=== PATIENT | female | born 1970 | race Caucasian/White ===

== ENCOUNTER 2016-11-08 07:33 | Emergency (ER) | payer MEDICARE, BC ==
[~2016-11-08] VITALS: Ht 165.1 cm; Wt 103.5 kg
[~2016-11-08 07:33] MED LIST: CHOL100047 PO; CYAN10009 PO; ESOM20CA PO; LISI-621 PO; LORA-320 PO; MAGN400C PO; TEMA30CA PO; TIZA4TAB4 PO; VILA40TA PO
[2016-11-08 07:35] VITALS: Ht 165.1 cm; Wt 103.5 kg
--- NOTE | 2016-11-08 08:00 | NUR ---
PROVIDER DR. BOSTON IN ROOM WITH PT.
[2016-11-08] MEDS ORDERED: NORMAL SALINE 1,000 ML IV ONE (08:02)
--- NOTE | 2016-11-08 08:07 | ERPDOC ---
Departure Disposition Decision Date: Nov 08, 2016 Disposition Decision Time: 12:00 Disposition: 01 DISCHARGED HOME, SELF-CARE Impression Impression Impression: Primary Impression: Nausea & vomiting Vomiting type: unspecified Vomiting Intractability: non-intractable Qualified Codes: R11.2 - Nausea with vomiting, unspecified Additional Impression: Pain, dental Severity: Mild Condition: Improved Seen By: Physician only Referrals: CECILY SAUNDERS (Family) 1 Day Patient Instructions: Acute Nausea and Vomiting (ED), Chest Pain (ED), Toothache (ED) Problems/Meds/Labs Reviewed?: Yes Medications reviewed and manag: Yes Departure Forms: Return to Work/School Permit Return to Work/School Date: Nov 10, 2016 Follow up care ordered?: Yes Mental Status: Alert, Oriented Scripts Ondansetron (Ondansetron Odt) 4 Mg Tab.rapdis 4 MG PO Q6HR for NAUSEA, #12 TAB 0 Refills Prov: DINAH BOSTON DO 11/08/16 Amoxicillin (Amoxicillin) 500 Mg Capsule 1 CAP PO BID for dental pain for 10 Days, #20 CAP 0 Refills Prov: DINAH BOSTON DO 11/08/16 HPI - General Medical General Stated Complaint: V/D,CHILLS,CHEST DISCOMFORT Time Seen by Provider: 08:02 Source: patient (Patient presents to the ER with multiple complaints. Patient complains of N/V/D, which apparently began this morning, with a "fullness" in the chest after vomiting. On examination, the patient complains of nausea only. ) Exam Limitations: no limitations HPI - General Medical Occurred At: home Onset: Changing over time Duration: 6-12 hrs Pain Scale: Now & Worst: Unable to Rate (abdominal cramping) Severity: mild Associated Symptoms: chest pain, malaise, nausea/vomiting, other, DENIES: cough , diaphoresis, fever/chills, headaches, loss of appetite, rash, seizure, shortness of breath, syncope, weakness Hx of Similar Symptoms: No Allergies: Coded Allergies: No Known Drug Allergies (Verified Allergy, Unknown, 10/26/15) Past History Past Medical History Pt denies signifigant PMH Hx Echocardiogram: No Musculoskeletal: back pain Psychological: anxiety, bipolar Surgical History General: gallbladder Family History Family PMH: FOUND: [place], other Vaccines Hx Influenza Vaccination: Yes Hx Pneumococcal Vaccination: No Hx Tetanus, Diptheria, Pertuss: Yes (09/04/2012) Social History Smoking Status: Unknown if ever smoked Substance Use Type: does not use Alcohol Intake: none Marital Status: Sexuality: male partner Housing: house Household Members: spouse Service: No Current Occupational Status: employed Occupational Hazard: No Advance Directives: Yes Full Code Record Review Pertinent history updated: Yes Review of Systems Constitutional Constitutional: DENIES: chills, fever Eyes Lids/Accessories: DENIES: erythema, swelling ENMT Ears: DENIES: erythema, pain Balance: DENIES: ataxia, vertigo Sinuses: DENIES: congestion, rhinorrhea Mouth/Throat: DENIES: sore throat Cardiovascular Cardiac: chest pain, DENIES: dyspnea on exertion, orthopnea Rhythm/Rate: DENIES: tachycardia Pulmonary Respiratory: DENIES: cough, dyspnea, sputum GI Upper Abdomen: nausea, vomiting, DENIES: pain Lower Abdomen: diarrhea, DENIES: constipation, pain General: DENIES: dysuria Musculoskeletal General: DENIES: cramps, pain, weakness Integumentary Skin: DENIES: color change, itching, rash Neurological General: DENIES: ataxia, change in strength, headache, numbness, poor coordination, seizures, syncope, vertigo, weakness Psychiatric Psychiatric: DENIES: anxiety, depression, nervousness Hematologic/Lymphatic Hematologic/Lymphatic: DENIES: anemia Allergic/Immunological Allergic/Immunoligical: DENIES: sneezing All other Systems All Other Systems: Reviewed and Negative Physical Exam General General Nourishment: well nourished, well developed, appears stated age, adult General Body Habitus: well groomed Vitals and Pain First Documented Vital Signs Date Time Temp Pulse Resp B/P Pulse Ox O2 Delivery O2 Flow Rate FiO2 11/08/16 07:35 98.0 76 18 146/76 100 Room Air Weight: Kilograms: Height (feet): 5 Height (inches): 5 Triage Pain Scale: RN VS reviewed by Provider: Yes Eyes (brief) Eyes Brief: found: EOMI, PERRL ENMT (brief) ENMT Brief: FOUND: TM clear, TM good light reflex, mucosa moist, NOT FOUND: pharnyx erythema Neck (brief) Neck: FOUND: trachea midline, NOT FOUND: adenopathy, nuchal rigidity, tenderness, tracheal deviation Respiratory (brief) Respiratory: FOUND: clear all whittaker, equal bilaterally Cardiovascular (brief) Cardiac: FOUND: regular rate, regular rhythm Capillary Refill: <2 sec Pulses: all distal extremities, equal, strong Abdomen (brief) Abdominal Brief: FOUND: bowel normo active x4, soft, NOT FOUND: distended, tender Lymphatic (brief) Lymphatic Brief: NOT FOUND: adenopathy Musculoskeletal (brief) Musculoskeletal Brief: NOT FOUND: spasm, tenderness Integumentary (brief) Integumentary Brief: FOUND: pink, warm Neurologic (brief) Neurological Brief: FOUND: CN w/o gross def to obs, gait w/o gross def to obs, motor-no gross deficits, sensory-no gross deficits, NOT FOUND: ataxia Psychiatric (brief) Psychiatric Brief: FOUND: alert, attentive, normal affect, oriented Differential Diagnoses Considering: Acute [place], Hypo/Hyperglycemia, Hypo/Hyperkalemia, Hypo/ Hypernatremia, Meningitis, Pneumonia, Other Progress Results/Orders Orders Procedure Category Date Status Time Iv Lock (Ed Only) EDM 11/08/16 Transmitted 08:02 Nothing By Mouth (Ed EDM 11/08/16 Transmitted Only) 08:02 Cbc W/Auto LAB 11/08/16 Complete Diff-Reflex Manual 08:02 Cmp - Comprehensive LAB 11/08/16 Complete Metabolic 08:02 Lipase LAB 11/08/16 Complete 08:02 Abdomen Acute (Inc. RAD 11/08/16 Resulted Chest) 08:02 Normal Saline (Normal PHA 11/08/16 Complete Saline Iv) 08:02 Ondansetron Inj PHA 11/08/16 Complete (Zofran) 08:15 Troponin I W LAB 11/08/16 Complete Hemolysis Index EKG EKG 11/08/16 Taken LAB 11/08/16 Complete Qualitative, Urine 08:10 UA, LAB 11/08/16 Complete Dip&Micro(Complete) & 08:22 Troponin I W LAB 11/08/16 Complete Hemolysis Index 10:48 EKG EKG 11/08/16 Taken Lab Results Laboratory Tests Test 11/08/16 08:22 11/08/16 10:54 White Blood Count 7.7T/MM3 Red Blood Count 4.56M/MM3 Hemoglobin 12.6GM/DL Hematocrit 39.4% Mean Corpuscular Volume 86.4UM3 Mean Corpuscular Hemoglobin 27.6UUG Mean Corpuscular Hemoglobin Concent 32.0GM/DL RDW Standard Deviation 43.6FL Platelet Count 343T/MM3 Mean Platelet Volume 10.4UM3 Immature Granulocyte % (Auto) 0.3% Neutrophils (%) (Auto) 83.3% Lymphocytes (%) (Auto) 11.1% Monocytes (%) (Auto) 4.8% Eosinophils (%) (Auto) 0.1% Basophils (%) (Auto) 0.4% Absolute Immature Granulocyte (auto 0.02T/MM3 Absolute Neutrophils (auto) 6.4T/MM3 Absolute Lymphocytes (auto) 0.9T/MM3 Absolute Monocytes (auto) 0.4T/MM3 Absolute Eosinophils (auto) 0.0T/MM3 Absolute Basophils (auto) 0.0T/MM3 Urine Collection Type Cleancatch-midstream Urine Color Yellow Urine Turbidity Clear Urine pH 5.0 Urine Specific [place] >=1.030 Urine Protein Negative Urine Glucose (UA) Negative Urine Ketones 3+ Urine Blood 2+ Urine Nitrite Negative Urine Bilirubin 1+ Urine Urobilinogen 0.2EU/DL Urine Leukocyte Esterase Negative Urine RBC 3-5/HPF Urine WBC 0-1/HPF Urine Squamous Epithelial Cells 5-10 Urine Bacteria 4+ Urine Hyaline Casts 0-1/LPF Urine Mucus Present Urine Culture Indicated Cult not indicated Urine Test Negative Turbidity < 20 Sodium Level 142MEQ/L Potassium Level 3.9MEQ/L Chloride Level 107MEQ/L Carbon Dioxide Level 20MEQ/L Anion Gap 15MEQ/L Blood Urea Nitrogen 15.0MG/DL Creatinine 0.6MG/DL Glomerular Filtration Rate Calc 107 BUN/Creatinine Ratio 25RATIO Glucose Level 110MG/DL Calculated Osmolality 275MOSM/KG Calcium Level 9.3MG/DL Total Bilirubin 0.70MG/DL Icterus Index < 2 Aspartate Amino Transf (AST/SGOT) 29U/L Alanine Aminotransferase (ALT/SGPT) 29U/L Alkaline Phosphatase 149U/L Troponin I < 0.012ng/ml < 0.012ng/ml Total Protein 7.5G/DL Albumin 4.1G/DL Globulin 3.4G/DL Albumin/Globulin Ratio 1.2RATIO Lipase 132U/L Chemistry Specimen Hemolysis < 15 < 15 Medications Current ED Medications Sodium Chloride (Normal Saline IV) 1,000 ml @ 0 mls/hr Q0M ONCE IV Last administered on 11/08/16 08:33; Start 11/08/16 at 08:02; Stop 11/08/16 at 08:05; Status DC Ondansetron HCl (Zofran) 4 mg O ONCE IV Last administered on 11/08/16 08:33; Start 11/08/16 at 08:15; Stop 11/08/16 at 08:16; Status DC Progress Progress Patient is feeling better following IVF and Medications. I discussed admission, but the patient refused. Patient will agree to repeat cardiac enzymes Patient denies chest pain, stating her chest was sore from vomiting. Patient at discharge complains of Dental pain at approx. tooth # 14 or #15 No obvious abscess noted. EKG EKG #1: Rate: 60-100 Rhythm: sinus [place]: normal QRS: normal Intervals: normal ST/T: non-specific changes Interpreted by: signing physician EKG #2: Rate: 60-100 Rhythm: sinus [place]: normal QRS: normal Intervals: normal ST/T: non-specific changes Interpreted by: signing physician EKG Comments No change from prior EKG ScImage/Picomm EKG interpreted in ScImage/Pic: No Xray Xray : Reason for Exam: nausea / vomiting / diarrhea Xray: Abdominal Series Interpretation: Normal, Reviewed Written Report DINAH BOSTON DO Nov 08, 2016 08:07
[2016-11-08] MEDS ORDERED: ONDANSETRON 4mg/2ml INJECTION IV ONE (08:15)
[2016-11-08 08:28] LABS: BASOPHILS % (AUTO) 0.4 % (0-2); EOSINOPHILS % (AUTO) 0.1 % (0-4); HCT - HEMATOCRIT 39.4 % (36-46); HGB - HEMOGLOBIN 12.6 GM/DL (12-16); IMMATURE GRANULOCYTE # (AUTO) 0.02 T/MM3 (0.00-0.03); IMMATURE GRANULOCYTE % (AUTO) 0.3 % (0.0-0.5); LYMPHOCYTES # (AUTO) 0.9 T/MM3 (1-4.8); LYMPHOCYTES % (AUTO) 11.1 % (23-45); MEAN CORPUSCULAR HGB 27.6 UUG (26-34); MEAN CORPUSCULAR VOLUME 86.4 UM3 (80-100); MEAN PLATELET VOLUME 10.4 UM3 (9.4-12.4); MONOCYTES # (AUTO) 0.4 T/MM3 (0-0.8); MONOCYTES % (AUTO) 4.8 % (0-9.0); NEUTROPHILS #(AUTO)-ABSOLUTE 6.4 T/MM3 (1.8-7.7); NEUTROPHILS % (AUTO) 83.3 % (33-66); RED BLOOD COUNT 4.56 M/MM3 (4.00-5.20); WBC - WHITE BLOOD COUNT 7.7 T/MM3 (4.5-11.0)
[2016-11-08 08:29] LABS: BLOOD, URINE 2+ (NEGATIVE); COLOR,URINE YELLOW (YELLOW); LEUKOCYTE ESTERASE ,URINE NEGATIVE (NEGATIVE); NITRITE,URINE NEGATIVE (NEGATIVE); UROBILINOGEN,URINE 0.2 EU/DL (NORMAL)
[2016-11-08 08:39] LABS: WBC,URINE 0-1 /HPF (0-5)
[2016-11-08 08:40] LABS: ALBUMIN 4.1 G/DL (3.5-5.0); ALBUMIN/GLOBULIN RATIO 1.2 RATIO (1.1-2.2); ALKALINE PHOSPHATASE 149 U/L (38-126); ALT (SGPT) 29 U/L (9-52); ANION GAP 15 MEQ/L (5-15); AST (SGOT) 29 U/L (14-36); BACTERIA,URINE 4+ (NEGATIVE); BUN/CREATININE RATIO 25 RATIO (6-26); CALCIUM 9.3 MG/DL (8.4-10.2); CHLORIDE 107 MEQ/L (98-107); CO2 - CARBON DIOXIDE 20 MEQ/L (22-30); CREATININE 0.6 MG/DL (0.7-1.2); GLOMERULAR FILTRATION RATE 107; GLUCOSE 110 MG/DL (65-110); LIPASE 132 U/L (23-300); MUCUS,URINE PRESENT; POTASSIUM 3.9 MEQ/L (3.6-5); SODIUM 142 MEQ/L (134-144); TOTAL PROTEIN 7.5 G/DL (6.3-8.2)
[2016-11-08 08:41] LABS: HYALINE CASTS, URINE 0-1 /LPF
--- NOTE | 2016-11-08 08:46 | NUR ---
XRAY PT TO XRAY PER COT.
--- NOTE | 2016-11-08 08:57 | NUR ---
XRAY/NAUSEA STATUS PT RETURNED FROM XRAY PER COT. PT STATES ZOFRAN HAS HELPED THE NAUSEA, CONTINUES TO DENY ANY PAIN.
--- NOTE | 2016-11-08 09:08 | DI ---
Indication: ITS.REASON: nausea/ vomiting / chest pain PROCEDURE: PA view of the chest with supine and upright AP views of the abdomen Encounter: Initial Comparison: CT abdomen and pelvis dated March 28, 2014 FINDINGS: The lungs are clear. There is no abnormal airspace opacity, pleural effusion or pneumothorax identified. The heart size, pulmonary vasculature and mediastinum are within normal limits. There is no free air on the upright view. The bowel gas pattern is nonobstructive and nonspecific. Gas is seen in nondilated small and large bowel to the level of the rectum. Moderate stool is seen throughout the colon. The bony structures are grossly unremarkable. Postoperative change at the GE junction region. Prior cholecystectomy. Intrauterine device projecting over the left upper pelvis. Surgical anastomosis in the left midabdomen. IMPRESSION: 1. No acute cardiopulmonary abnormality. 2. No evidence of acute obstruction or free air. Postoperative changes of prior gastric bypass. .
[2016-11-08] MEDS ORDERED: ZOLP10TA6 PO (09:20)
[2016-11-08] MEDS ORDERED: QUET50TA53 PO (09:20)
[2016-11-08] MEDS ORDERED: TRAM50TA4 PO (09:20)
[2016-11-08] MEDS ORDERED: LORA2TAB2 PO (09:20)
--- NOTE | 2016-11-08 10:45 | NUR ---
PROVIDER DR. BOSTON IN ROOM WITH PT.
--- NOTE | 2016-11-08 11:26 | NUR ---
REPORT REPORT FROM ROSA BARNES. MELBA ROMERO
[2016-11-08] MEDS ORDERED: AMOX500C2 PO (12:06)
[2016-11-08] MEDS ORDERED: ONDA4TAB10 PO (12:06)
[2016-11-08 12:31] VITALS: BP 133/81; PULSE 84; RESP 16; TEMP 98; O2SAT 100
--- NOTE | 2016-11-08 12:31 | NUR ---
DEPART VERBAL AND WRITTEN DISCHARGE INSTRUCTIONS GIVEN AND UNDERSTOOD. CONDITION IS STABLE. PATIENT RELEASED AMBULATORY FROM ER. [facility].
== END 2016-11-08 12:31 | disposition home or self-care (01) ==
LOC: ED 07:33
DX: R11.2 Nausea with vomiting, unspecified (principal); K08.89 Other specified disorders of teeth and supporting structures
CPT/HCPCS: 36415; 74022; 80053; 81001; 81025; 83690; 84484; 85025; 93005; 96361; 96374; 99284; J2405; J7030

== ENCOUNTER 2017-11-23 09:37 | Inpatient (IN) ==
--- OUTSIDE RECORDS SUMMARY | 2017-11-23 11:03 | External Medical Summary ---
:1970 Author Organization [facility]. Summary purpose CCDA Sent to [facility] Chief Complaint and Reason for Visit No authorized Reason for Visit (Admitting Diagnosis) is available for this visit. Problem list No authorized problems tracked for continuity of care are available for this visit. Encounters No authorized problems tracked for encounter diagnoses are available for this visit. Medications No medications recorded for this patient visit Allergies, adverse reactions, alerts No allergy information is available for this patient. Immunizations No immunizations recorded for this patient visit Relevant diagnostic tests and/or laboratory data RESULTS Chemistry Group [id number] Result Normal Range Units Sodium 139 134-145 mmol/L Potassium 4.5 3.6-5.0 mmol/L Chloride 100 98-107 mmol/L CO2 25 22-30 mmol/L Glucose 87 75-110 mg/dl BUN 11 9-20 mg/dl Creatinine L .64 0.8-1.7 mg/dl Calcium 8.7 8.4-10.2 mg/dl History of procedures Procedure Code Code Type Description Date Performed Performing Physician [id number] CPT-4 METABOLIC PANEL TOTAL 12-05-2015 CECILY MORRIS Functional status No functional or cognitive status observations are available for this visit. Vital signs No authorized vital signs are available for this visit. Social history No Social History or smoking status observations were recorded for this visit. ( Unknown if ever smoked.) Treatment Plan No treatment plan text is available for this visit. Hospital discharge instructions No discharge instruction text is available for this visit.
--- OUTSIDE RECORDS SUMMARY | 2017-11-23 11:03 | External Medical Summary | Referral Summary ---
:1970 Author Organization [facility] Address [address] [place] [address] Encounter [facility] [id number] Date(s): 10/18/15 - 10/18/15 [facility] [address] [place] [address] - [place] Discharge Diagnosis: Foot pain Discharge Diagnosis: Toe sprain Discharge Diagnosis: Abrasion of left arm Discharge Disposition: 01-Home or Self Care Attending Physician: Provider, Immediate Care Attending Physician: Anupama Gonzalez APRN Admitting Physician: Provider, Immediate Care Vital Signs Most recent to oldest [Reference Range]: 1 Temperature Oral [35.8-37.3 degC] 36.8 degC (10/18/15 4:20 PM) Peripheral Pulse Rate [60-100 bpm] 66 bpm (10/18/15 4:20 PM) Blood Pressure [90-140/60-90 mmHg] 155/82 mmHg *HI* (10/18/15 4:20 PM) SpO2 98 % (10/18/15 4:20 PM) Problem List No data available for this section Allergies, Adverse Reactions, Alerts No Known Allergies Medications Ativan 0 Refill(s) Start Date: 10/18/15 Status: Orderedlisinopril 20 mg oral tablet mg tabs, Oral, Daily, 0 Refill(s) Start Date: 10/18/15 Status: Orderedmagnesium oxide Oral, 0 Refill(s) Start Date: 10/18/15 Status: OrderedNexIUM Oral, Daily, 0 Refill(s) Start Date: 10/18/15 Status: Orderedtemazepam Oral, Bedtime (once a day), 0 Refill(s) Start Date: 10/18/15 Status: OrderedVitamin B12 0 Refill(s) Start Date: 10/18/15 Status: OrderedVitamin D3 0 Refill(s) Start Date: 10/18/15 Status: Orderedvybrid vybrid, 0 Refill(s) Start Date: 10/18/15 Status: Ordered Results No data available for this section Immunizations No data available for this section Procedures No data available for this section Social History Social History Type Response Smoking Status Former smoker Assessment and Plan Extracted from: Title: Office Visit Note Author: Anupama Gonzalez JOWL TRIMMER Date: 10/18/15 Assessment/Plan 1.Toe sprain Ice/elevate F/u with PCP if not improving No Fracture 2.Abrasion of left arm Cleanse with soap and water daily Monitor for s/s of infections and f/u if any develops Diagnosis and treatment discussed. Patient advised to follow up with PCP in 2 -3 days. If symptoms worsen at any time, patient will go to the nearest ER for further evaluation. Patient stable upon disc harge, alert and orientated with no apparent distress, and indicated understanding of discharge instructions. Foot pain Ordered: XR Foot Complete Left
--- OUTSIDE RECORDS SUMMARY | 2017-11-23 11:03 | External Medical Summary ---
:1970 Author Organization [facility]. Summary purpose CCDA Sent to [facility] Chief Complaint and Reason for Visit Admit Diagnosis 1 401.1 Problem list No authorized problems tracked for continuity of care are available for this visit. Encounters No authorized problems tracked for encounter diagnoses are available for this visit. Medications No medications recorded for this patient visit Allergies, adverse reactions, alerts No allergy information is available for this patient. Immunizations No immunizations recorded for this patient visit Relevant diagnostic tests and/or laboratory data No authorized results are available for this patient visit History of procedures No procedures recorded for this patient visit. Functional status No functional or cognitive status [...]
--- OUTSIDE RECORDS SUMMARY | 2017-11-23 11:04 | External Medical Summary | Continuity of Care Document ---
:1970 Author Organization [facility]. Allergies Active Description Code Type Severity Reaction Onset Reported/ Identified Relationship Clinical to Patient Status Yes FETZIMA 11923 Drug N/A increased 07188 Aller anger 0 gy Yes NKDA N/A N/A Yes Pertussis PERTU 5 N/A swelling Vaccine SSIS Yes TETANUS T 3112 1 N/A Redness DIPHTHERIA TOX,ADULT Yes No Known 99683 3 N/A N/A Drug 0 Allergies Yes No Known NKMA N/A N/A 10/18/2015 Allergies Yes No Known No Aller Unknown N/A 10/26/2015 Drug Known gy Allergies Drug Aller gies Yes No Known No Drug Unknown N/A 06/07/2016 Allergies Known Aller Aller gy gies Medications Medication Packaging Start Date Stop Date Route Dosage Sig VITAMIN ORAL 11/24/2011 ORAL B-12 5 ORAL 11/24/2011 ORAL MULTIVITAMINS 5 ORAL 11/24/2011 ORAL LORAZEPAM 5 CALCIUM ORAL 11/24/2011 ORAL 5 ORAL 09/27/2012 ORAL ZOLPIDEM TARTRATE 5 ORAL 09/27/2012 ORAL OMEPRAZOLE 5 MOBIC ORAL 09/27/2012 ORAL 5 LORTAB ORAL 09/27/2012 ORAL 5 ORAL 09/27/2012 ORAL LORAZEPAM 5 FOLIC ORAL 09/27/2012 ORAL ACID 5 FERROUS ORAL 09/27/2012 ORAL SULFATE 5 VITAMIN ORAL 11/19/2014 ORAL 30 D HIGH POTENCY daily VITAMIN ORAL 11/19/2014 ORAL 60 B-12 daily VIIBRYD ORAL 11/19/2014 ORAL 7 5 daily ORAL 11/19/2014 ORAL 40 TRAMADOL HCL 5 4 times a day ORAL 11/19/2014 ORAL 30 RESTORIL 5 at bedtime ORAL 11/19/2014 ORAL 120 LORAZEPAM 6 four times daily ORAL 11/19/2014 ORAL 30 LISINOPRIL daily VIIBRYD ORAL 12/02/2014 ORAL 28 5 daily ORAL 12/17/2014 ORAL 30 RESTORIL at bedtime VIIBRYD ORAL 04/23/2015 ORAL 7 5 daily FETZIMA ORAL 04/23/2015 ORAL 30 5 daily VIIBRYD ORAL 06/09/2015 ORAL 30 daily ORAL 11/17/2015 ORAL 60 CLONAZEPAM 6 twice daily AMBIEN ORAL 12/31/2015 ORAL 15 every other night Problems Date Dx Attending Type Code Diagnosis Diagnosed By Coded 12/04/2010 Ullom-Minnich F 309.81 Chronic PTSD Jose Miguel CASTANEDA 12/04/2010 Ullom-Minnich F 278.00 Obesity, NOS Jose Miguel CASTANEDA 12/04/2010 Ullom-Minnich F 533.90 PUDz Jose Miguel CASTANEDA 12/04/2010 D 278.00 OBESITY, UNSPECIFIED 10/22/2011 D 278.00 OBESITY, UNSPECIFIED 10/22/2011 D 780.52 INSOMNIA NOS 03/13/2012 Ullom-Minnich F 401.1 HTN Jose Miguel CASTANEDA 03/20/2012 Ullom-Minnich F 416.0 Pulmonary HTN Jose Miguel CASTANEDA 07/08/2014 Ullom-Minnich F 280.9 Iron deficiency Jose Miguel CASTANEDA anemia, unspecified 12/18/2014 Ullom-Minnich F 307.41 Insomnia Jose Miguel CASTANEDA 12/18/2014 Ullom-Minnich F 785.1 Palpitations Jose Miguel CASTANEDA 12/18/2014 Ullom-Minnich F V70.0 Prevention Jose Miguel CASTANEDA 12/18/2014 Ullom-Minnich F 477.0 Allergies Jose Miguel CASTANEDA 12/18/2014 Ullom-Minnich F 724.2 Low back pain Jose Miguel CASTANEDA 01/27/2015 Ullom-Minnich F 307.41 Insomnia Jose Miguel CASTANEDA 01/27/2015 Ullom-Minnich F 785.1 Palpitations Jose Miguel CASTANEDA 01/27/2015 Ullom-Minnich F V70.0 Prevention Jose Miguel CASTANEDA 01/27/2015 Ellelom-Minnich F 477.0 Allergies Jose Miguel CASTANEDA 01/27/2015 CONNOR Maya 401.9 HYPERTENSION NOS JOSE MIGUEL CASTANEDA 11/24/2015 Arpitm-Minnich F 307.41 Insomnia Jose Miguel CASTANEDA 11/24/2015 Ullom-Minnich F 785.1 Palpitations Jose Miguel CASTANEDA 11/24/2015 Ellelom-Minnich F 477.0 Allergies Jose Miguel CASTANEDA 11/24/2015 Ellelom-Minnich F 724.2 Low back pain Jose Miguel CASTANEDA 12/05/2015 CONNOR Maya I10 Essential (primary) JOSE MIGUEL CASTANEDA hypertension 12/10/2015 Taty Gomez L85.3 Xerosis cutis J 12/10/2015 Taty Gomez N89.8 Vaginal Discharge J or Lesion 12/10/2015 Taty Gomez N92.6 Irregular Menses J 12/10/2015 Taty Gomez R10.2 Pelvic and perineal J pain 03/26/2016 Taty Gomez L85.3 Xerosis cutis J 03/26/2016 Taty Gomez N89.8 Vaginal Discharge J or Lesion 03/26/2016 Taty Gomez N91.5 Oligomenorrhea, J unspecified 03/26/2016 Taty Gomez N92.6 Irregular Menses J 03/26/2016 Taty Gomez R10.2 Pelvic and perineal J pain 06/23/2016 Taty Gomez L85.3 Xerosis cutis J 06/23/2016 Taty Gomez N89.8 Vaginal Discharge J or Lesion 06/23/2016 Taty Gomez N91.5 Oligomenorrhea, J unspecified 06/23/2016 Taty Gomez N92.6 Irregular Menses J 06/23/2016 Taty Gomez R10.2 Pelvic and perineal J pain 11/08/2016 LUDY PATTON, K08.89 OTHER SPECIFIED DINAH DISORDERS OF TEETH AND SUPPORTING STRUCTURES 11/08/2016 LUDY PATTON, R11.2 NAUSEA WITH DINAH VOMITING, UNSPECIFIED 09/05/2017 Connor-Minnich F 307.41 Insomnia Jose Miguel CASTANEDA 09/12/2017 Connor-Elizabeth F 477.0 Allergies Jose Miguel CASTANEDA 09/12/2017 Adan F 724.2 Low back pain Jose Miguel CASTANEDA 09/12/2017 Adan F 785.1 Palpitations Jose Miguel CASTANEDA Procedures Code [place] [id number] METABOLIC PANEL CONNOR JOHNSON MD, 12/04/2010 TOTAL CA JOSE MIGUEL Maya 85274 COMPLETE CBC, CONNOR JOHNSON MD, 12/04/2010 AUTOMATED JOSE MIGUEL Maya [id number] ASSAY THYROID CONNOR JOHNSON MD, 10/22/2011 STIM HORMONE JOSE MIGUEL Maya 80285 COMPLETE CBC, CONNOR JOHNSON MD, 10/22/2011 AUTOMATED JOSE MIGUEL Maya 24140 Collection of 12/18/2014 venous blood by venipuncture MIN20 20 minute 12/18/2014 appointment [id number] Ferritin 12/18/2014 54102 Serum iron 12/18/2014 85194 TIBC 12/18/2014 49029 Thyroid 12/18/2014 stimulating hormone (TSH) 77250 Complete blood 12/18/2014 count (CBC), automated (Hgb, Hct, RBC, WBC, platelets) and automated differential WBC 36136 12/18/2014 Office/outpatient visit; established patient, level 4 FU2MO Follow up 12/18/2014 appointment in 2 months FU1WK Follow up 12/18/2014 appointment in 1 week MIN20 20 minute 12/18/2014 appointment [id number] 12/18/2014 Office/outpatient visit; established patient, level 4 55249 METABOLIC PANEL CONNOR JOHNSON MD, 01/27/2015 TOTAL CA JOSE MIGUEL Maya 76032 ASSAY THYROID CONNOR JOHNSON MD, 01/27/2015 STIM HORMONE JOSE MIGUEL Maya 05560 ASSAY, CONNOR JOHNSON MD, 01/27/2015 TRIIODOTHYRONINE (T3) JOSE MIGUEL Maya 84618 COMPLETE CBC, CONNOR JOHNSON MD, 01/27/2015 AUTOMATED JOSE MIGUEL Maya 54263 01/27/2015 Office/outpatient visit; established patient, level 4 FU1WK Follow up 01/27/2015 appointment in 1 week MIN20 20 minute 01/27/2015 appointment [id number] Collection of 01/27/2015 venous blood by venipuncture 23378 Basic metabolic 01/27/2015 panel (Ca, CO2, Cl, Creatinine, Glu, K, Na, BUN) 33767 Complete blood 01/27/2015 count (CBC), automated (Hgb, Hct, RBC, WBC, platelets) and automated differential WBC FU1WK Follow up 01/27/2015 appointment in 1 week MIN20 20 minute 01/27/2015 appointment [id number] Thyroid 01/27/2015 stimulating hormone (TSH) 79786 01/27/2015 Office/outpatient visit; established patient, level 4 64380 Venpnctr 11/17/2015 fngr/heel/ear stick routne 68264 TSH 11/17/2015 71770 Automated 11/17/2015 hemogram (CBC) 31692 Cult specmn, 11/17/2015 bactr, no urn/bld/stl 74182 11/17/2015 Office/outpatient visit,est, mod 45350 Collection of 11/24/2015 venous blood by venipuncture 01721 Basic metabolic 11/24/2015 panel (Ca, CO2, Cl, Creatinine, Glu, K, Na, BUN) 79507 Thyroid 11/24/2015 stimulating hormone (TSH) 20974 Complete blood 11/24/2015 count (CBC), automated (Hgb, Hct, RBC, WBC, platelets) and automated differential WBC 56588 11/24/2015 Office/outpatient visit; established patient, level 4 FU1WK Follow up 11/24/2015 appointment in 1 week MIN20 20 minute 11/24/2015 appointment [id number] Collection of 11/24/2015 venous blood by venipuncture 06407 Basic metabolic 11/24/2015 panel (Ca, CO2, Cl, Creatinine, Glu, K, Na, BUN) 16911 11/24/2015 Electrocardiogram, routine with at least 12 leads; with interpretation and report A4556 EKG electrodes 11/24/2015 [facility]MP Return for a 11/24/2015 basic metabolic panel (BMP) blood test in the next weeks RSLIP Return for a 11/24/2015 fasting lipids in the next few weeks 09381 11/24/2015 Office/outpatient visit; established patient, level 5 37668 METABOLIC PANEL CONNOR JOHNSON MD, 12/05/2015 TOTAL CA JOSE MIGUEL D 83516 09/05/2017 Office/outpatient visit; established patient, level 3 51817 09/12/2017 Electrocardiogram, routine with at least 12 leads; with interpretation and report [id number] 09/12/2017 Office/outpatient visit; established patient, level 5 A4556 EKG electrodes 09/12/2017 [facility]SBMP Return for a 09/12/2017 basic metabolic panel (BMP) blood test in the next weeks RSLIP Return for a 09/12/2017 fasting lipids in the next few weeks 64479 Collection of 09/12/2017 venous blood by venipuncture 14151 Basic metabolic 09/12/2017 panel (Ca, CO2, Cl, Creatinine, Glu, K, Na, BUN) 52611 09/12/2017 Office/outpatient visit; established patient, level 5 <section xmlns="urn:hl7-org:v3" xmlns:xsi="http://www.Referral.IM3.org/ 2001/XMLSchema-instance"> <templateId root=" [id number]" /> <templateId root=" [email or web address]" /> <code codeSystemName=" LOINC" codeSystem="[email or web address]" code="12254-8&quot ; displayName="Results" /> <title>Results</title> &lt ;text> <table> <thead> <tr> <th& gt;Test</th> <th>Result</th> <th>Range </th> </tr> </thead> <tbody> &lt ;tr> <th colspan="10">CBC - 01/27/15 13:34</th&gt ; </tr> <tr> <td>Eos #</td> <td>0.10 x10^3</td> <td>0-0.5</td> </ tr> <tr> <td>Eos %</td> & lt;td>1.5 %</td> <td>0-4</td> </ tr> <tr> <td>HCT</td> <td> 37.9 %</td> <td>37.0-47.0</td> </tr > <tr> <td>HGB</td><td>12.3 G/DL</ td> <td>12.0-16.0</td> </tr> <tr& gt; <td>Lymph #</td> <td>1.97 x10^3</td& gt; <td>1.0-4.0</td> </tr> <tr> <td>Lymph %</td> <td>28.7 %& lt;/td> <td>20-50</td> </tr> <tr& gt; <td>MCH</td> <td>29.9 PG</td> &lt ;td>27.0-31.0</td> </tr> <tr> <td >MCHC</td> <td>32.5 G/DL</td> <td> 32.0-36.0</td> </tr> <tr> <td>MCV </td> <td>92.2 FL</td><td>81-99</td> </tr> <tr> <td>Perkins #</td> & lt;td>0.51 x10^3</td> <td>0.0-0.8</td> < /tr> <tr> <td>Perkins %</td> < td>7.4 %</td> <td>1.0-9.0</td> < /tr> <tr> <td>MPV</td> <td> 10.3 FL</td> <td>6.0-10.0</td> </tr> <tr> <td>Platelet</td> <td>267 x10^3</td> <td>150-400</td> </tr> <tr> <td>RBC</td> <td>4.11 x10^3< /td> <td>4.20-5.40</td> </tr> <tr > <td>RDW</td> <td>14.4 %</td& gt; <td>12-15</td> </tr> <tr> <td>WBC</td> <td>6.87 x10^3</td> <td>4.8-10.8</td> </tr> <tr> & lt;td>Baso #</td> <td>0.03 x10^3</td> &lt ;td>0-0.2</td> </tr> <tr> <td> Baso%</td> <td>0.4 %</td> & lt;td>0-2</td> </tr> <tr> <td> Neut %</td> <td>62.0 %</td> <td>50-70</td> </tr> <tr> <td> Neut #</td> <td>4.26 x10^3</td> <td> 3.0-7.0</td> </tr> <tr> <th colspan= "10">Basic Metabolic Panel - 01/27/15 14:00</th> </ tr> <tr> <td>Sodium</td> <td&gt ;139 MMOLL</td> <td>134-145</td> </tr> <tr> <td>Potassium</td> <td> 3.9 MMOLL</td> <td>3.6-5.0</td> </tr> <tr> <td>Chloride</td> <td>106 MMOLL</td> <td>98-107</td> </tr> <tr& gt; <td>CO2</td> <td>22 MMOLL</td> <td>22-30</td> </tr> <tr> <td>Glucose</td> <td>72 MG/DL</td> &lt ;td>75-110</td> </tr> <tr> <td&gt ;BUN</td> <td>13 MG/DL</td> <td>9-20</ td> </tr> <tr> <td>Creatinine</td > <td>.6 MG/DL</td> <td>0.8-1.7</td&gt ; </tr> <tr> <td>Calcium</td> <td>9.1 MG/DL</td> <td>8.4-10.2</td> </tr> <tr> <th colspan="10">TSH - 01/27/15 14:00</th> </tr> <tr> <td >TSH</td> <td>0.25 UIUML</td> <td> 0.50-6.00</td> </tr> <tr> <th colspan=& quot;10">Free T4 - 01/28/15 10:01</th> </tr> & lt;tr> <td>Free T4</td> <td>0.83 NG/DL&lt ;/td> <td>0.75-1.54</td> </tr> < tr> <th colspan="10">T3 Total - 01/29/15 09:21</ th> </tr> <tr> <td>T3 Total</td&gt ; <td>113 ng/dL</td> <td>87-178</td> </tr> <tr> <th colspan="10">Basic Metabolic Panel - 12/05/15 13:30</th> </tr> <tr&gt ; <td>Sodium</td> <td>139 MMOLL</td> <td>134-145</td> </tr> <tr> <td>Potassium</td> <td>4.5 MMOLL</td> <td>3.6-5.0</td> </tr> <tr> < td>Chloride</td> <td>100 MMOLL</td> < td>98-107</td> </tr> <tr> <td> CO2</td> <td>25 MMOLL</td> <td>22-30& lt;/td> </tr> <tr> <td>Glucose</td&gt ; <td>87 MG/DL</td> <td>75-110</td> </tr> <tr> <td>BUN</td> & lt;td>11 MG/DL</td> <td>9-20</td> </tr& gt; <tr> <td>Creatinine</td> <td& gt;.64 MG/DL</td> <td>0.8-1.7</td> </tr&gt ; <tr> <td>Calcium</td> <td> 8.7 MG/DL</td> <td>8.4-10.2</td> </tr> <tr> <th colspan="10">URINALYSIS, ROUTINE - 11:30</th> </tr> <tr> <td> UA LEUKOCYTE ESTERASE DIPSTICK</td> <td>2+ </td> <td>NEGATIVE</td> </tr> <tr> <td& gt;UA NITRITE DIPSTICK</td> <td>NEGATIVE </td> <td>NEGATIVE</td> </tr> <tr> <td>UA PROTEIN DIPSTICK</td> <td>NEGATIVE </td&gt ; <td>NEGATIVE</td> </tr> <tr> <td>UA GLUCOSE DIPSTICK</td> <td>NEGATIVE &lt ;/td> <td>NEGATIVE</td> </tr> <tr > <td>UA KETONE DIPSTICK</td> <td>1+ < /td> <td>NEGATIVE</td> </tr> <tr& gt; <td>UA UROBILINOGEN DIPSTICK</td> <td> NORMAL </td> <td>NORMAL</td> </tr> <tr> <td>UA BILIRUBIN DIPSTICK</td> < td>NEGATIVE </td> <td>NEGATIVE</td> </tr& gt; <tr> <td>UA BLOOD DIPSTICK</td> & lt;td>NEGATIVE </td> <td>NEGATIVE</td> </ tr> <tr> <td>UA SPECIFIC GRAVITY</td> <td>1.008 </td> <td>1.015-1.025</td> </tr> <tr> <td>UR PH</td> & lt;td>5.0 </td> <td>5.0-7.0</td> </tr&gt ; <tr> <th colspan="10">UA MICROSCOPIC - 10/ 11:30</th> </tr> <tr> <td& gt;UA BACTERIA</td> <td>2+ </td> <td> NEGATIVE</td> </tr> <tr> <td>UA EPITHELIAL CELLS</td> <td>4+ epi/hpf</td> & lt;td>0 - 1+</td> </tr> <tr> <td& gt;UA RBC</td> <td>0-3 rbc/hpf</td> <td& gt;0 - 3</td> </tr> <tr> <td>UA VOLUME FOR EXAM</td> <td>12.0 mL</td> <td>( 12mL STD)</td> </tr> <tr> <td>UA WBC< /td> <td>20-50 wbc/hpf</td> <td>0 - 5< /td> </tr> <tr> <th colspan="10& quot;>HEPATIC FUNCTION PANEL - 06/07/16 11:30</th> </tr> <tr> <td>BILI UNCONJUGATED</td> < td>0.3 mg/dL</td> <td>0.0-0.7</td> </tr& gt; <tr> <td>AST/SGOT</td> <td> 21 Units/L</td> <td>10-37</td> </tr> <tr> <td>ALT/SGPT</td> <td>21 Units/L</td> <td>< 66</td> </tr> <tr> <td>TOTAL PROTEIN</td> <td& gt;8.2 gm/dL</td> <td>6.4-8.2</td> </tr&gt ; <tr> <td>ALBUMIN</td> <td> 4.1 gm/dL</td> <td>3.4-5.0</td> </tr> <tr> <td>BILI TOTAL</td> <td>0.4 mg/dL </td> <td>0.0-1.0</td> </tr> < tr> <td>ALKALINE PHOSPHATASE TOTAL</td> <td& gt;151 IU/L</td> <td>45-117</td> </tr> <tr> <td>BILI CONJUGATED</td> <td& gt;0.1 mg/dL</td> <td>0.0-0.3</td> </tr> <tr> <th colspan="10">LIPASE - 06/07/16 11:30</th> </tr> <tr> <td>LIPASE& lt;/td> <td>165 Units/L</td> <td>73-393& lt;/td> </tr> <tr> <th colspan="10 ">URINE CULTURE - 06/07/16 11:30</th> </tr> & lt;tr> <td>Microbiology</td> <td> </td > <td /> </tr> <tr> <th colspan="10">CHEM/HEM PROFILE-BEDSIDE - 06/07/16 11:33</th> </tr> <tr> <td>POTASSIUM</td> <td>4.1 mmol/L</td> <td>3.5-5.3</td> </tr> <tr> <td>METHOD</td> <td>Bedside </td> <td /> </tr> <tr> <td>ANION GAP</td> <td>18 mmol/L& lt;/td> <td>10-20</td> </tr> <tr& gt; <td>METHOD</td> <td>Bedside </td> <td /> </tr> <tr> <td> GLUCOSE</td> <td>105 mg/dL</td> <td>70-99&lt ;/td> </tr> <tr> <td>BLOOD UREA NITROGEN</td> <td>5 mg/dL</td> <td>7-20</ td> </tr> <tr> <td>CREATININE</td > <td>0.7 mg/dL</td> <td>0.6-1.0</td& gt; </tr> <tr> <td>HEMOGLOBIN</td&gt ; <td>13.9 gm/dL</td> <td>12.0-16.0</td& gt; </tr> <tr> <td>HEMATOCRIT</td&gt ; <td>41.0 %</td> <td>37.0-47.0</ td> </tr> <tr> <td>SODIUM</td&gt ; <td>138 mmol/L</td> <td>135-148</td&gt ; </tr> <tr> <td>CHLORIDE</td> <td>104 mmol/L</td> <td>98-110</td> </tr> <tr> <td>CARBON DIOXIDE</td> <td>21 mmol/L</td> <td>21-32</td> </tr> <tr> <td>CALCIUM IONIZED</td> <td>4.6 mg/dL</td> <td>4.5-5.3</td> </tr> <tr> <th colspan="10"> L100.0050 - 11/08/16 08:22</th> </tr> <tr> <td>WBC - WHITE BLOOD COUNT</td> <td>7.7 T/MM3& lt;/td> <td>4.5-11.0</td> </tr> < tr> <td>RED BLOOD COUNT</td> <td>4.56 M/ MM3</td> <td>4.00-5.20</td> </tr> <tr> <td>HGB - HEMOGLOBIN</td> <td> 12.6 GM/DL</td> <td>12-16</td> </tr> < tr> <td>HCT - HEMATOCRIT</td> <td>39.4 & amp;#37;</td> <td>36-46</td> </tr> <tr> <td>MEAN CORPUSCULAR VOLUME</td> &lt ;td>86.4 UM3</td> <td>80-100</td> </tr& gt; <tr> <td>MEAN CORPUSCULAR HGB</td> <td >27.6 UUG</td> <td>26-34</td> </tr> <tr> <td>MEAN CORPUSCULAR HGB CONC(MCHC</td> <td>32.0 GM/DL</td> <td>31-37</td> </tr> <tr> <td>RDW STANDARD DEVIATION< /td> <td>43.6 FL</td> <td>36.9-50.2</ td> </tr> <tr> <td>PLT - PLATELET COUNT< /td> <td>343 T/MM3</td> <td>130-400</ td> </tr> <tr> <td>MEAN PLATELET VOLUME</td> <td>10.4 UM3</td> <td>9.4- 12.4</td> </tr> <tr> <td> NEUTROPHILS % (AUTO)</td> <td>83.3 %</td > <td>33-66</td> </tr> <tr> <td>LYMPHOCYTES % (AUTO)</td> <td>11.1 & amp;#37;</td> <td>23-45</td> </tr> <tr> <td>MONOCYTES % (AUTO)</td> <td>4.8 %</td> <td>0-9.0</td> & lt;/tr> <tr> <td>EOSINOPHILS % (AUTO)< /td> <td>0.1 %</td> <td>0-4</ td> </tr> <tr> <td>BASOPHILS &#37 ; (AUTO)</td> <td>0.4 %</td> <td& gt;0-2</td> </tr> <tr> <td> IMMATURE GRANULOCYTE % (AUTO)</td> <td>0.3 &#37 ;</td> <td>0.0-0.5</td> </tr> < tr> <td>NEUTROPHILS # (AUTO)</td> <td> 6.4 T/MM3</td> <td>1.8-7.7</td> </tr> <tr> <td>LYMPHOCYTES # (AUTO)</td> &lt ;td>0.9 T/MM3</td> <td>1-4.8</td> </tr& gt; <tr> <td>MONOCYTES # (AUTO)</td> & lt;td>0.4 T/MM3</td> <td>0-0.8</td> </tr > <tr> <td>EOSINOPHILS # (AUTO)</td> <td>0.0 T/MM3</td> <td>0-0.5</td> & lt;/tr> <tr> <td>BASOPHILS # (AUTO)</td> <td>0.0 T/MM3</td> <td>0-0.2</td> </tr> <tr> <td>IMMATURE GRANULOCYTE # (AUTO )</td> <td>0.02 T/MM3</td> <td>0.00- 0.03</td> </tr> <tr> <th colspan=& quot;10">L600.0175 - 11/08/16 08:22</th> </tr> <tr> <td>SPECIMEN TYPE, URINE</td> <td& gt;CLEANCATCH-MIDSTREAM </td> <td /> </tr> <tr> <td>COLOR,URINE</td> <td> YELLOW </td> <td>YELLOW</td> </tr> <tr> <td>TURBIDITY, URINE</td> <td> CLEAR </td> <td>CLEAR</td> </tr> <tr> <td>SPECIFIC GRAVITY,URINE</td> <td>& amp;gt;=1.030 </td> <td>1.015-1.025</td> </ tr> <tr> <td>PH, URINE - DIPSTICK</td> <td>5.0 </td> <td>5.0-8.0</td> &lt ;/tr> <tr> <td>LEUKOCYTE ESTERASE ,URINE</td& gt; <td>NEGATIVE </td> <td>NEGATIVE</td& gt; </tr> <tr> <td>NITRITE,URINE</td > <td>NEGATIVE </td> <td>NEGATIVE</td> </tr> <tr> <td>PROTEIN,URINE - DIPSTICK&lt ;/td> <td>NEGATIVE </td> <td>NEGATIVE< /td> </tr> <tr> <td>GLUCOSE, URINE - DIPSTICK</td> <td>NEGATIVE </td> <td&gt ;NEGATIVE</td> </tr> <tr> <td> KETONES,URINE - DIPSTICK</td> <td>3+ </td> & lt;td>NEGATIVE</td> </tr><tr> <td> UROBILINOGEN,URINE</td> <td>0.2 EU/DL</td> &lt ;td>NORMAL</td> </tr> <tr> <td&gt ;BILIRUBIN,URINE - DIPSTICK</td> <td>1+ </td> <td>NEGATIVE</td> </tr> <tr> & lt;td>BLOOD, URINE</td> <td>2+ </td> < td>NEGATIVE</td> </tr> <tr> <td& gt;WBC,URINE</td> <td>0-1 /HPF</td> <td& gt;0-5</td> </tr> <tr> <td>RBC, URINE</td> <td>3-5/HPF</td> <td>0-3&lt ;/td> </tr> <tr> <td>SQUAMOUS EPITHELIAL CELL,UR</td> <td>5-10 </td> < td /> </tr> <tr> <td>BACTERIA,URINE& lt;/td> <td>4+ </td> <td>NEGATIVE</td& gt; </tr> <tr><td>MUCUS,URINE</td> <td>PRESENT </td> <td /></tr> <tr& gt; <td>HYALINE CASTS, URINE</td> <td>0-1 / LPF</td> <td /> </tr> <tr> <td>CULTURE SET UP,URINE</td> <td>CULT NOT INDICATED </td> <td /> </tr> <tr> <th colspan="10">L600.2900 - 11/08/16 08:22</th> </tr> <tr> <td>PREG QUAL, URINE TEST& lt;/td> <td>NEGATIVE </td> <td>NEGATIVE& lt;/td> </tr> <tr> <th colspan="10& quot;>L200.0020 - 11/08/16 08:22</th> </tr> <tr> <td>ICTERUS</td> <td>< 2 </td&gt ; <td>0-7</td> </tr> <tr> <td>HEMOLYSIS</td> <td>< 15 </td> <td>0-25</td> </tr> <tr> & lt;td>TURBIDITY</td> <td>< 20 </td> <td>0-20</td> </tr> <tr> < td>SODIUM</td> <td>142 MEQ/L</td> <td& gt;134-144</td> </tr> <tr> <td> POTASSIUM</td> <td>3.9 MEQ/L</td> <td> 3.6-5</td> </tr> <tr> <td>CHLORIDE</td& gt; <td>107 MEQ/L</td> <td>98-107</td&gt ; </tr> <tr> <td>CO2 - CARBON DIOXIDE& lt;/td> <td>20 MEQ/L</td> <td>22-30</td> </tr> <tr> <td>ANION GAP</td> <td>15 MEQ/L</td> <td>5-15</td> & lt;/tr> <tr> <td>BLOOD UREA NITROGEN</td> <td>15.0 MG/DL</td> <td>7-17</td> </tr> <tr> <td>CREATININE</td> <td>0.6 MG/DL</td> <td>0.7-1.2</td> </tr > <tr> <td>BUN/CREATININE RATIO</td> <td>25 RATIO</td> <td>6-26</td> </tr&gt ; <tr> <td>GLOMERULAR FILTRATION RATE</td> <td>107 </td> <td /> </tr> <tr> <td>GLUCOSE</td> <td>110 MG/DL& lt;/td> <td>65-110</td> </tr> <tr> <td>OSMOLALITY,CALCULATED</td> <td>275 MOSM/ KG</td> <td>261-280</td> </tr> & lt;tr> <td>CALCIUM</td> <td>9.3 MG/DL</td > <td>8.4-10.2</td> </tr> <tr&gt ; <td>BILIRUBIN,TOTAL</td> <td>0.70 MG/DL</td& gt; <td>0.20-1.30</td> </tr> <tr> <td>ALKALINE PHOSPHATASE</td> <td>149 U/L</td > <td>38-126</td> </tr> <tr> <td>TOTAL PROTEIN</td> <td>7.5 G/DL</td& gt; <td>6.3-8.2</td> </tr> <tr> <td>ALBUMIN</td> <td>4.1 G/DL</td> & lt;td>3.5-5.0</td> </tr> <tr> <td >GLOBULIN</td> <td>3.4 G/DL</td> <td& gt;2.4-3.6</td> </tr> <tr> <td>ALBUMIN /GLOBULIN RATIO</td> <td>1.2 RATIO</td> < td>1.1-2.2</td> </tr> <tr> <td> AST (SGOT)</td> <td>29 U/L</td> <td>14 -36</td> </tr> <tr> <td>ALT (SGPT )</td> <td>29 U/L</td> <td>9-52</td > </tr> <tr> <th colspan="10"> L200.194911/08/16 08:22</th> </tr> <tr> & lt;td>LIPASE</td> <td>132 U/L</td> <td >23-300</td> </tr> <tr> <th colspan="10">L200.184711/08/16 08:22</th> </tr& gt; <tr> <td>HEMOLYSIS</td> <td&gt ;< 15 </td> <td>0-25</td></tr> & lt;tr> <td>TROPONIN I</td> <td>< 0.012 ng/ml</td> <td>0-0.12</td> </tr> <tr> <th colspan="10">L200.184711/08/16 10:54& lt;/th> </tr> <tr> <td>HEMOLYSIS< /td> <td>< 15 </td> <td>0-25</td> </tr> <tr> <td>TROPONIN I</td> <td>< 0.012 ng/ml</td> <td>0-0.12</td > </tr> <tr> <th colspan="10" >HEMOGLOBIN - 11/15/17 15:25</th> </tr> <tr> <td>MEAN CELL VOLUME</td><td>89.1 fl</td> <td>80.0-100.0</td> </tr> <tr> <td>HEMOGLOBIN</td> <td>10.8 gm/dL</td> <td>12.0-16.0</td> </tr> <tr> <th colspan="10">ALCOHOL (ETHANOL) SERUM - 11/15/17 15:25& lt;/th> </tr> <tr> <td>ALCOHOL (ETHANOL) SERUM</td> <td>< 10 mg/dL</td> <td> & amp;lt; 10</td> </tr> <tr> <th colspan="10">PROTHROMBIN TIME WITH INR - 11/16/17 02:29</th> </tr> <tr> <td>INTERNATIONAL NORMAL RATIO</td> <td>1.1 </td> <td>0.9-1.1</td > </tr> <tr> <td>PROTHROMBIN TIME&lt ;/td> <td>12.6 sec</td> <td>10.0-12.8< /td> </tr> <tr> <th colspan="10"&gt ;FIBRINOGEN - 11/16/17 02:29</th> </tr> <tr> <td>FIBRINOGEN</td> <td>252 mg/dL</td> <td>200-400</td> </tr> <tr> <th colspan="10">METABOLIC PANEL, BASIC - 11/16/17 02:35&lt ;/th> </tr> <tr> <td>POTASSIUM</td> <td>4.0 mmol/L</td> <td>3.5-5.3</td> </tr> <tr> <td>EST GFR (MDRD)</td& gt; <td>> 60 mL/min</td> <td>&gt ; 59</td> </tr> <tr> <td>ANION GAP</td> <td>8 mmol/L</td> <td>5-15</td > </tr> <tr> <td>EST CrCl (CG)</ td> <td>> 60 mL/min</td> <td>&gt ; 59</td> </tr> <tr> <td>GLUCOSE& lt;/td> <td>154 mg/dL</td> <td>70-99</ td> </tr> <tr> <td>CALCIUM</td&gt ; <td>8.4 mg/dL</td> <td>8.5-10.1</td&gt ; </tr> <tr> <td>BLOOD UREA NITROGEN&lt ;/td> <td>11 mg/dL</td> <td>7-20</td& gt; </tr> <tr> <td>CREATININE</td&gt ; <td>0.8 mg/dL</td> <td>0.6-1.0</td> </tr> <tr> <td>SODIUM</td> < td>139 mmol/L</td> <td>135-148</td> </tr > <tr> <td>CHLORIDE</td> <td&gt ;106 mmol/L</td> <td>98-110</td> </tr> <tr> <td>CARBON DIOXIDE</td> <td> 25 mmol/L</td> <td>21-32</td> </tr> <tr> <th colspan="10">CBC - 11/16/17 05:18&lt ;/th> </tr> <tr> <td>MEAN CELL HGB& lt;/td> <td>28.7 pg</td> <td>27.0-33.0&lt ;/td> </tr> <tr> <td>MEAN CELL HGB CONCENTRATION</td> <td>32.6 g/dL</td> <td >32.0-37.0</td> </tr> <tr> <td>MEAN CELL VOLUME</td> <td>88.0 fl</td> <td> 80.0-100.0</td> </tr> <tr> <td> MEAN PLATELET VOLUME</td> <td>11.0 fl</td> & lt;td>8.5-10.9</td> </tr> <tr> < td>RED BLOOD CELL</td> <td>3.17 m/cumm</td> <td>4.00-6.00</td> </tr> <tr> <td>RED CELL DISTRIBUTION WIDTH</td> <td>14.2 & #37;</td> <td>11.0-15.6</td> </tr> <tr> <td>WHITE BLOOD CELL</td> <td> 10.4 k/cumm</td> <td>5.0-10.0</td> </tr&gt ; <tr> <td>HEMOGLOBIN</td> <td> 9.1 gm/dL</td> <td>12.0-16.0</td> </tr> <tr> <td>HEMATOCRIT</td> <td> 27.9 %</td> <td>37.0-47.0</td> </tr > <tr> <td>NRBC %</td> &lt ;td>0.0 /100 WBC</td> <td>0.0-0.0</td> < /tr> <tr> <td>PLATELET COUNT</td> <td>355 k/cumm</td> <td>150-400</td> &lt ;/tr> </tbody> </table> </text> <entry> <organizer moodCode="EVN" classCode="BATTERY"> & lt;templateId root="[id number]" /> <id nullFlavor="NA" /> <code codeSystem="local" code= "CBC6" displayName="CBC" /> <statusCode code=& quot;completed" /> <component> <observation moodCode="EVN" classCode="OBS"> <templateId root="[id number]" /> <id nullFlavor ="NA" /> <code codeSystem="local" code=" EOS#" displayName="Eos #" /> <statusCode code=& quot;completed" /> <effectiveTime value="[id number]& quot; /> <value unit="x10^3" xsi:type="PQ" value="0.10" /> <referenceRange> < observationRange> <text>0-0.5</text> < /observationRange> </referenceRange> </observation& gt; </component> <component> <observation moodCode="EVN" classCode="OBS"> <templateId root="[id number]" /> <id nullFlavor ="NA" /> <code codeSystem="local" code=" EOS%" displayName="Eos %" /> < statusCode code="completed" /> <effectiveTime value=& quot;024602709161" /> <value unit="%" xsi:type=& quot;PQ" value="1.5" /> <referenceRange> <observationRange> <text>0-4</text> </observationRange> </referenceRange> </ observation></component> <component> <observation moodCode="EVN" classCode="OBS"> <templateId root="2.16.840.1.745304.10.20.22.4.2" /> <id nullFlavor=& quot;NA" /> <code codeSystem="local" code=" HCT" displayName="HCT" /> <statusCode code=" completed" /> <effectiveTime value="782347244199" /> <value unit="%" xsi:type="PQ" value="37.9" /> <referenceRange> < observationRange> <text>37.0-47.0</text> </observationRange> </referenceRange> </ observation> </component> <component> < observation moodCode="EVN" classCode="OBS"> < templateId root="2.16.840.1.653805.10.20.22.4.2" /> < id nullFlavor="NA" /> <code codeSystem="local&quot ; code="HGB" displayName="HGB" /> < statusCode code="completed" /> <effectiveTime value=& quot;407324741546" /> <value unit="G/DL" xsi:type= "PQ" value="12.3" /> <referenceRange> <observationRange> <text>12.0-16.0</text&gt ; </observationRange> </referenceRange> & lt;/observation> </component> <component> < observation moodCode="EVN" classCode="OBS"> < templateId root="2.16.840.1.478352.10..22.4.2" /> < id nullFlavor="NA" /> <code codeSystem="local" code="LYMPH#" displayName="Lymph #" /> < statusCode code="completed" /> <effectiveTime value=& quot;408645427771" /> <value unit="x10^3" xsi:type ="PQ" value="1.97" /> <referenceRange> <observationRange> <text>1.0-4.0</text> </observationRange> </referenceRange> & lt;/observation> </component> <component> < observation moodCode="EVN" classCode="OBS"> < templateId root="2.16.840.1.464653.10.20.22.4.2" /> < id nullFlavor="NA" /> <code codeSystem="local&quot ; code="LYMPH%" displayName="Lymph %" /> <statusCode code="completed" /> < effectiveTime value="874687388295" /> <value unit=&quot ;%" xsi:type="PQ" value="28.7" /> & lt;referenceRange> <observationRange> <text& gt;20-50</text> </observationRange> </ referenceRange> </observation> </component> < component> <observation moodCode="EVN" classCode=" OBS"> <templateId root="2.16.840.1.126864.10.20.22.4.2& quot; /> <id nullFlavor="NA" /> <code codeSystem="local" code="MCH" displayName="MCH" /& gt; <statusCodecode="completed" /> < effectiveTime value="542848866774" /> <value unit="PG& quot; xsi:type="PQ" value="29.9" /> < referenceRange> <observationRange> <text> 27.0-31.0</text> </observationRange> </ referenceRange> </observation> </component> < component> <observation moodCode="EVN" classCode=" OBS"> <templateId root="2.16.840.1.794021.10.20.22.4.2& quot; /> <id nullFlavor="NA" /> <code codeSystem="local" code="MCHC" displayName="MCHC" /> <statusCode code="completed" /> < effectiveTime value="837732979592" /> <value unit=&quot ;G/DL" xsi:type="PQ" value="32.5" /> < referenceRange> <observationRange> <text>32.0- 36.0</text> </observationRange> </ referenceRange> </observation> </component> < component> <observation moodCode="EVN" classCode=" OBS"> <templateId root="2.16.840.1.690641.10.20.22.4.2& quot; /> <id nullFlavor="NA" /> <code codeSystem="local" code="MCV" displayName="MCV" /& gt; <statusCode code="completed" /> < effectiveTime value="817545847875" /> <value unit=&quot ;FL" xsi:type="PQ" value="92.2" /> < referenceRange> <observationRange> <text> 81-99</text> </observationRange> </ referenceRange> </observation> </component> < component> <observation moodCode="EVN" classCode=" OBS"> <templateId root="2.16.840.1.651589.10.20.22.4.2& quot; /> <id nullFlavor="NA" /> <code codeSystem= "local" code="MONO#" displayName="Perkins #" /> <statusCode code="completed" /> <effectiveTime value="587284657733" /> <value unit="x10^3" xsi:type="PQ" value="0.51" /> <referenceRange > <observationRange> <text>0.0-0.8</ text> </observationRange> </referenceRange> & lt;/observation> </component> <component> < observation moodCode="EVN" classCode="OBS"> < templateId root="2.16.840.1.530131.10.20.22.4.2" /> < id nullFlavor="NA" /> <code codeSystem="local&quot ; code="MONO%" displayName="Perkins %" /> & lt;statusCode code="completed" /> <effectiveTime value= "962430657142" /> <value unit="%" xsi :type="PQ" value="7.4" /> <referenceRange&gt ; <observationRange> <text>1.0-9.0</text& gt; </observationRange> </referenceRange> </observation> </component> <component> &lt ;observation moodCode="EVN" classCode="OBS"> &lt ;templateId root="2.16.840.1.402286.10.20.22.4.2" /> < id nullFlavor="NA" /> <code codeSystem="local&quot ; code="MPV" displayName="MPV" /> < statusCode code="completed" /> <effectiveTime value=& quot;105445262579" /> <value unit="FL" xsi:type=& quot;PQ" value="10.3" /> <interpretationCode codeSystem="local" code="H" /> < referenceRange> <observationRange> <text>6.0- 10.0</text> </observationRange> </ referenceRange> </observation> </component> < component> <observation moodCode="EVN" classCode=" OBS"> <templateId root="2..840.1.142588.10.20.22.4.2& quot; /> <id nullFlavor="NA" /> <code codeSystem="local" code="PLT" displayName="Platelet& quot; /> <statusCode code="completed" /> & lt;effectiveTime value="910983301424" /> <value unit=& quot;x10^3" xsi:type="PQ" value="267" /> & lt;referenceRange> <observationRange> <text& gt;150-400</text> </observationRange> </referenceRange > </observation> </component> <component> <observation moodCode="EVN" classCode="OBS"> <templateIdroot="2.16.840.1.022932.10.20.22.4.2" /> <id nullFlavor="NA" /> <code codeSystem=" local" code="RBC" displayName="RBC" /> < statusCode code="completed" /> <effectiveTime value=& quot;380920529798" /> <value unit="x10^3" xsi:type ="PQ" value="4.11" /> <interpretationCode codeSystem="local" code="L" /> < referenceRange> <observationRange> <text> 4.20-5.40</text> </observationRange> </ referenceRange> </observation> </component> < component> <observation moodCode="EVN" classCode=" OBS"> <templateId root="2.16.840.1.161719.10.20.22.4.2& quot; /> <id nullFlavor="NA" /> <code codeSystem="local" code="RDW" displayName="RDW" /& gt; <statusCode code="completed" /> < effectiveTime value="759729460999" /> <value unit=&quot ;%" xsi:type="PQ" value="14.4" /> & lt;referenceRange> <observationRange> <text& gt;12-15</text> </observationRange> </referenceRange&gt ; </observation> </component> <component> <observation moodCode="EVN" classCode="OBS"> <templateId root="2.16.840.1.859669.10.20.22.4.2" /> <id nullFlavor="NA" /> <code codeSystem=" local" code="WBC" displayName="WBC" /> < statusCode code="completed" /> <effectiveTime value=" 220611898435" /> <value unit="x10^3" xsi:type=& quot;PQ" value="6.87" /> <referenceRange> <observationRange> <text>4.8-10.8</text> </observationRange> </referenceRange> &lt ;/observation> </component> <component> < observation moodCode="EVN" classCode="OBS"> < templateId root="2.16.840.1.165111.10.20.22.4.2" /> < id nullFlavor="NA" /> <code codeSystem="local&quot ; code="BASO#" displayName="Baso #" /> < statusCode code="completed" /> <effectiveTimevalue=& quot;961389541748" /> <value unit="x10^3" xsi:type ="PQ" value="0.03" /> <referenceRange> <observationRange> <text>0-0.2</text> </observationRange> </referenceRange> </ observation> </component> <component> < observation moodCode="EVN" classCode="OBS"> < templateId root="2.16.840.1.567878.10.20.22.4.2" /> < id nullFlavor="NA" /> <code codeSystem="local&quot ; code="BASO%" displayName="Baso %" /> <statusCode code="completed" /> < effectiveTime value="052821075319" /> <value unit=&quot ;%" xsi:type="PQ" value="0.4" /> & lt;referenceRange> <observationRange> <text>0-2& lt;/text> </observationRange> </referenceRange& gt; </observation> </component> <component> <observation moodCode="EVN" classCode="OBS"> <templateId root="2.16.840.1.897709.10.20.22.4.2" /> <id nullFlavor="NA" /> <code codeSystem=&quot ;local" code="SEG%" displayName="Neut %&quot ; /> <statusCode code="completed" /> < effectiveTime value="891514772400" /> <value unit=&quot ;%" xsi:type="PQ" value="62.0" /> & lt;referenceRange> <observationRange> <text& gt;50-70</text> </observationRange> </ referenceRange> </observation> </component> < component> <observation moodCode="EVN" classCode=" OBS"> <templateId root="2.16.840.1.207021.10.20.22.4.2& quot; /> <id nullFlavor="NA" /> <code codeSystem="local" code="SEG#" displayName="Neut #&quot ; /> <statusCode code="completed" /> < effectiveTime value="376482467121" /> <value unit=" x10^3" xsi:type="PQ" value="4.26" /> < referenceRange> <observationRange> <text> 3.0-7.0</text> </observationRange> </ referenceRange> </observation> </component> </ organizer> </entry> <entry> <organizer moodCode="EVN " classCode="BATTERY"> <templateId root=" 2.16.840.1.287230.10.20.22.4.1" /> <id nullFlavor="NA&quot ; /> <code codeSystem="local" code="BMP" displayName="Basic Metabolic Panel" /> <statusCode code=& quot;completed" /> <component> <observation moodCode="EVN" classCode="OBS"> <templateId root="2.16.840.1.258490.10.20.22.4.2" /> <id nullFlavor ="NA" /> <code codeSystem="local" code=" NA" displayName="Sodium" /> <statusCode code=&quot ;completed" /> <effectiveTime value="516199110164&quot ; /> <value unit="MMOLL" xsi:type="PQ" value= "139" /> <referenceRange> < observationRange> <text>134-145</text> </ observationRange> </referenceRange> </observation&gt ; </component> <component> <observation moodCode ="EVN" classCode="OBS"> <templateId root=& quot;2.16.840.1.529516.10.20.22.4.2" /><id nullFlavor="NA" /> <code codeSystem="local" code="K" displayName="Potassium" /> <statusCode code=" completed" /> <effectiveTime value="082803085818" / > <value unit="MMOLL" xsi:type="PQ" value=& quot;3.9" /> <referenceRange> < observationRange> <text>3.6-5.0</text> & lt;/observationRange> </referenceRange> </ observation> </component> <component> < observation moodCode="EVN" classCode="OBS"> < templateId root="2.16.840.1.153859.10.20.22.4.2" /> < id nullFlavor="NA" /> <code codeSystem="local&quot ; code="CL" displayName="Chloride" /> < statusCode code="completed" /> <effectiveTime value=& quot;533094078786" /> <value unit="MMOLL" xsi:type ="PQ" value="106" /> <referenceRange> <observationRange> <text>98-107</text> </observationRange> </referenceRange> </ observation> </component> <component> < observation moodCode="EVN" classCode="OBS"> < templateId root="2.16.840.1.819847.10.20.22.4.2" /> < id nullFlavor="NA" /> <code codeSystem="local&quot ; code="CO2" displayName="CO2" /><statusCode code=& quot;completed" /> <effectiveTime value="457895763999& quot; /> <value unit="MMOLL" xsi:type="PQ" value="22" /> <referenceRange> < observationRange> <text>22-30</text> < /observationRange> </referenceRange> </observation& gt; </component> <component> <observation moodCode="EVN" classCode="OBS"> <templateId root="2.16.840.1.086690.10.20.22.4.2" /> <id nullFlavor ="NA" /> <code codeSystem="local" code=" GLU" displayName="Glucose" /> <statusCode code=& quot;completed" /> <effectiveTime value="603252573787& quot; /> <value unit="MG/DL" xsi:type="PQ" value="72" /> <interpretationCode codeSystem=" local" code="L" /> <referenceRange> < observationRange> <text>75-110</text> &lt ;/observationRange> </referenceRange> </observation& gt; </component> <component> <observation moodCode="EVN" classCode="OBS"> <templateId root=& quot;2.16.840.1.537825.10..22.4.2" /> <id nullFlavor=&quot ;NA" /> <code codeSystem="local" code="BUN& quot; displayName="BUN" /> <statusCode code=" completed" /> <effectiveTime value="750442694280" /> <value unit="MG/DL" xsi:type="PQ" value=& quot;13" /> <referenceRange> < observationRange> <text>9-20</text> </ observationRange> </referenceRange> </observation&gt ; </component> <component> <observation moodCode ="EVN" classCode="OBS"> <templateId root=& quot;2.16.840.1.551154.10..22.4.2" /> <id nullFlavor=&quot ;NA" /> <code codeSystem="local" code="CREAT& quot; displayName="Creatinine" /> <statusCode code=" completed" /> <effectiveTime value="682966328268" /> <value unit="MG/DL" xsi:type="PQ" value=& quot;.6" /> <interpretationCode codeSystem="local&quot ; code="L" /> <referenceRange> < observationRange> <text>0.8-1.7</text> & lt;/observationRange> </referenceRange> </ observation> </component> <component> < observation moodCode="EVN" classCode="OBS"> < templateId root="2.16.840.1.563534.10.20.22.4.2" /> < id nullFlavor="NA" /> <code codeSystem="local&quot ; code="CA" displayName="Calcium" /> < statusCode code="completed" /> <effectiveTime value=& quot;780474297955" /> <value unit="MG/DL" xsi:type ="PQ" value="9.1" /> <referenceRange> <observationRange> <text>8.4-10.2</text> </observationRange> </referenceRange> & lt;/observation> </component> </organizer> </entry&gt ; <entry> <organizer moodCode="EVN" classCode=" BATTERY"> <templateId root="2.16.840.1.882312.10.20.22.4.1& quot; /> <id nullFlavor="NA" /> <code codeSystem ="local" code="TSH" displayName="TSH" /> & lt;statusCode code="completed" /> <component> < observation moodCode="EVN" classCode="OBS"> < templateId root="2.16.840.1.486876.10.20.22.4.2" /> < id nullFlavor="NA" /> <code codeSystem="local&quot ; code="TSH" displayName="TSH" /> < statusCode code="completed" /> <effectiveTime value=& quot;560495080593" /> <value unit="UIUML" xsi:type ="PQ" value="0.25" /> <interpretationCode codeSystem="local" code="L" /> < referenceRange> <observationRange> <text>0.50-6.00& lt;/text> </observationRange> </referenceRange& gt; </observation> </component> </organizer> & lt;/entry> <entry> <organizer moodCode="EVN" classCode ="BATTERY"> <templateId root=" 2.16.840.1.383879.10.20.22.4.1" /> <id nullFlavor="NA&quot ; /> <code codeSystem="local" code="FT4" displayName="Free T4" /> <statusCode code="completed& quot; /> <component> <observation moodCode="EVN& quot; classCode="OBS"> <templateId root=" 2.16.840.1.271340.10.20.22.4.2" /> <id nullFlavor="NA& quot; /> <code codeSystem="local" code="FT4" displayName="Free T4" /> <statusCode code=" completed" /> <effectiveTime value="376483874175"/ > <value unit="NG/DL" xsi:type="PQ" value=& quot;0.83" /> <referenceRange> < observationRange> <text>0.75-1.54</text> </observationRange> </referenceRange> </ observation> </component> </organizer> </entry> & lt;entry> <organizer moodCode="EVN" classCode="BATTERY& quot;> <templateId root="2.16.840.1.780529.10.20.22.4.1" /& gt; <id nullFlavor="NA" /> <code codeSystem=" local" code="T3TOTR" displayName="T3 Total" /> <statusCode code="completed" /> <component> & lt;observation moodCode="EVN" classCode="OBS"> & lt;templateId root="2.16.840.1.830924.10.20.22.4.2" /> &lt ;id nullFlavor="NA" /> <code codeSystem="local& quot; code="T3TOTR" displayName="T3 Total" /> & lt;statusCode code="completed" /> <effectiveTime value= "993762333174" /><value unit="ng/dL" xsi:type="PQ " value="113" /> <referenceRange> & lt;observationRange> <text>87-178</text> </ observationRange> </referenceRange> </observation&gt ; </component> </organizer> </entry> <entry> <organizer moodCode="EVN" classCode="BATTERY"> <templateId root="2.16.840.1.898267.10.20.22.4.1" /> < id nullFlavor="NA" /> <code codeSystem="local" code="BMP" displayName="Basic Metabolic Panel" /> & lt;statusCode code="completed" /> <component> &lt ;observation moodCode="EVN" classCode="OBS"> &lt ;templateId root="2.16.840.1.528278.10.20.22.4.2"/> < id nullFlavor="NA" /> <code codeSystem="local&quot ;code="NA" displayName="Sodium" /> < statusCode code="completed" /> <effectiveTime value=& quot;697310692181" /> <value unit="MMOLL" xsi:type ="PQ" value="139" /> <referenceRange> <observationRange> <text>134-145</text> </observationRange> </referenceRange> &lt ;/observation> </component> <component> < observation moodCode="EVN" classCode="OBS"> < templateId root="2.16.840.1.028371.10.20.22.4.2" /> < id nullFlavor="NA" /> <code codeSystem="local&quot ; code="K" displayName="Potassium" /> < statusCode code="completed" /> <effectiveTime value=& quot;235948999715" /> <value unit="MMOLL" xsi:type ="PQ" value="4.5" /> <referenceRange> <observationRange> <text>3.6-5.0</text> </observationRange> </referenceRange> </ observation> </component> <component> < observation moodCode="EVN" classCode="OBS"> < templateId root="2.16.840.1.863507.10.20.22.4.2" /> < id nullFlavor="NA" /> <code codeSystem="local&quot ; code="CL" displayName="Chloride" /> < statusCode code="completed" /> <effectiveTime value=& quot;348123419976" /> <value unit="MMOLL" xsi:type ="PQ" value="100" /> <referenceRange> <observationRange> <text>98-107</text> &lt ;/observationRange> </referenceRange> </observation& gt; </component> <component> < observationmoodCode="EVN" classCode="OBS"> < templateId root="2.16.840.1.925156.10.20.22.4.2" /> < id nullFlavor="NA" /> <code codeSystem="local&quot ; code="CO2" displayName="CO2" /> < statusCode code="completed" /> <effectiveTime value=& quot;048979117470" /> <value unit="MMOLL" xsi:type= "PQ" value="25" /> <referenceRange> < observationRange> <text>22-30</text> < /observationRange> </referenceRange> </observation& gt; </component> <component> <observation moodCode="EVN" classCode="OBS"> <templateId root="2.16.840.1.485291.10.20.22.4.2" /> <id nullFlavor ="NA" /> <code codeSystem="local" code=" GLU" displayName="Glucose" /> <statusCode code=& quot;completed" /> <effectiveTime value="757281650272& quot; /> <value unit="MG/DL" xsi:type="PQ" value="87" /> <referenceRange> < observationRange> <text>75-110</text> &lt ;/observationRange> </referenceRange> </observation& gt; </component> <component> <observation moodCode= "EVN" classCode="OBS"> <templateId root=" 2.16.840.1.110801.10.20.22.4.2" /> <id nullFlavor="NA& quot; /> <code codeSystem="local" code="BUN" displayName="BUN" /> <statusCode code="completed& quot; /> <effectiveTime value="518195916002" /> <value unit="MG/DL" xsi:type="PQ" value="11& quot; /> <referenceRange> <observationRange> <text>9-20</text> </observationRange&gt ; </referenceRange> </observation> </ component> <component> <observation moodCode="EVN& quot; classCode="OBS"> <templateId root=" 2.16.840.1.008444.10.20.22.4.2" /> <id nullFlavor="NA& quot; /><code codeSystem="local" code="CREAT" displayName="Creatinine" /> <statusCode code=" completed" /> <effectiveTime value="411716134714" /> <value unit="MG/DL" xsi:type="PQ" value=& quot;.64" /> <interpretationCode codeSystem="local&quot ; code="L" /> <referenceRange> < observationRange> <text>0.8-1.7</text> & lt;/observationRange> </referenceRange> </ observation> </component> <component> < observation moodCode="EVN" classCode="OBS"> < templateId root="2.16.840.1.959732.10.20.22.4.2" /> < id nullFlavor="NA" /> <code codeSystem="local&quot ; code="CA" displayName="Calcium" /> < statusCode code="completed" /> <effectiveTime value=& quot;811197596902" /> <valueunit="MG/DL" xsi:type= "PQ" value="8.7" /> <referenceRange> <observationRange> <text>8.4-10.2</text> </observationRange> </referenceRange> &lt ;/observation> </component> </organizer> </entry> <entry> <organizer moodCode="EVN" classCode=" BATTERY"> <templateId root="2.16.840.1.473170.10.20.22.4.1& quot; /> <id nullFlavor="NA" /> <code codeSystem ="local" code="UA" displayName="URINALYSIS, ROUTINE& quot; /> <statusCode code="completed" /> < component> <observation moodCode="EVN" classCode=" OBS"> <templateId root="2.16.840.1.991554.10.20.22.4.2& quot; /> <id nullFlavor="NA" /> <code codeSystem="local" code="LEUESU" displayName="UA LEUKOCYTE ESTERASE DIPSTICK" /> <statusCode code=" completed" /> <effectiveTime value="019379104697" /> <value unit="" xsi:type="PQ" value="2+" /> <interpretationCode codeSystem="local" code="*& quot; /> <referenceRange> <observationRange> <text>NEGATIVE</text> </observationRange&gt ; </referenceRange> </observation> </ component> <component> <observation moodCode="EVN& quot; classCode="OBS"> <templateId root=" 2.16.840.1.564789.10.20.22.4.2" /> <id nullFlavor="NA& quot; /> <code codeSystem="local" code="NITRIU& quot; displayName="UA NITRITE DIPSTICK" /> <statusCode code="completed" /> <effectiveTime value=" 851775679214" /> <value unit="" xsi:type="PQ& quot; value="NEGATIVE" /> <referenceRange>< observationRange> <text>NEGATIVE</text> & lt;/observationRange> </referenceRange> </ observation> </component> <component> < observation moodCode="EVN" classCode="OBS"> < templateId root="2.16.840.1.462955.10..22.4.2" /> < id nullFlavor="NA" /> <code codeSystem="local&quot ; code="PROTEIU" displayName="UA PROTEIN DIPSTICK" /> <statusCode code="completed" /> <effectiveTime value ="164243143188" /> <value unit="" xsi:type=& quot;PQ" value="NEGATIVE" /> <referenceRange> <observationRange> <text>NEGATIVE</text& gt; </observationRange> </referenceRange> </observation> </component> <component> &lt ;observation moodCode="EVN" classCode="OBS"> &lt ;templateId root="2.16.840.1.678257.10.20.22.4.2" /> < id nullFlavor="NA" /> <code codeSystem="local&quot ; code="DGLUU" displayName="UAGLUCOSE DIPSTICK" /> <statusCode code="completed" /> <effectiveTime value="463187524055" /> <value unit="" xsi: type="PQ" value="NEGATIVE" /> <referenceRange > <observationRange> <text>NEGATIVE</ text> </observationRange> </referenceRange> &lt ;/observation> </component> <component> < observation moodCode="EVN" classCode="OBS"> < templateIdroot="2.16.840.1.861525.10.20.22.4.2" /> <id nullFlavor="NA" /> <code codeSystem="local" code="KETONU" displayName="UA KETONE DIPSTICK" /> <statusCode code="completed" /> <effectiveTime value="011119301045" /> <value unit="" xsi: type="PQ"value="1+" /> <interpretationCode codeSystem="local" code="*" /> < referenceRange> <observationRange> <text> NEGATIVE</text> </observationRange> </ referenceRange> </observation> </component> < component> <observation moodCode="EVN" classCode=" OBS"> <templateId root="2.16.840.1.488187.10..22.4.2& quot; /> <id nullFlavor="NA" /> <code codeSystem="local" code="UROBILU" displayName="UA UROBILINOGEN DIPSTICK" /> <statusCode code="completed&quot ; /> <effectiveTime value="294968893296" /> <value unit="" xsi:type="PQ" value="NORMAL" / > <referenceRange> <observationRange> <text>NORMAL</text> </observationRange> </referenceRange> </observation> </component&gt ; <component> <observation moodCode="EVN" classCode="OBS"> <templateId root=" 2.16.840.1.736429.10.20.22.4.2" /> <id nullFlavor="NA& quot; /> <code codeSystem="local" code="BILU&quot ; displayName="UA BILIRUBIN DIPSTICK" /> <statusCode code="completed" /> <effectiveTime value=" 030501220115" /> <value unit="" xsi:type="PQ& quot; value="NEGATIVE" /> <referenceRange> & lt;observationRange> <text>NEGATIVE</text> </observationRange> </referenceRange> </ observation> </component> <component> < observation moodCode="EVN" classCode="OBS"> < templateId root="2.16.840.1.225348.10.20.22.4.2" /> < id nullFlavor="NA" /> <code codeSystem="local&quot ; code="JESSICA" displayName="UA BLOOD DIPSTICK" /> <statusCode code="completed" /> <effectiveTime value ="122572023597" /> <value unit="" xsi:type="PQ& quot; value="NEGATIVE" /> <referenceRange> <observationRange> <text>NEGATIVE</text> </observationRange> </referenceRange> </ observation> </component> <component> < observation moodCode="EVN" classCode="OBS"> < templateId root="2.16.840.1.758459.10.20.22.4.2" /> <id nullFlavor="NA" /> <code codeSystem="local" code="SPGRU" displayName="UA SPECIFIC GRAVITY" /> <statusCode code="completed" /> <effectiveTime value="656891367096" /> <value unit="" xsi: type="PQ" value="1.008" /> < interpretationCode codeSystem="local" code="*" /> <referenceRange> <observationRange> <text> 1.015-1.025</text> </observationRange> </ referenceRange> </observation> </component> < component> <observation moodCode="EVN" classCode=" OBS"> <templateId root="[id number]&quot ; /> <id nullFlavor="NA" /> <code codeSystem="local" code="ERICA" displayName="UR PH" /> <statusCode code="completed" /> < effectiveTime value="[id number]" /> <value unit=&quot ;" xsi:type="PQ" value="5.0" /> < referenceRange> <observationRange> <text> 5.0-7.0</text> </observationRange> </ referenceRange> </observation> </component> </ organizer> </entry> <entry> <organizer moodCode="EVN " classCode="BATTERY"> <templateId root=" 2.16.840.1.553833.10.20.22.4.1" /> <id nullFlavor="NA&quot ; /> <code codeSystem="local" code="UAMICRO" displayName="UA MICROSCOPIC" /> <statusCode code=" completed" /> <component> <observation moodCode=" EVN" classCode="OBS"> <templateId root=" 2.16.840.1.934100.10.20.22.4.2" /> <id nullFlavor="NA& quot; /> <code codeSystem="local" code="BACU" displayName="UA BACTERIA" /> <statusCode code=" completed" /> <effectiveTime value="579008400646" /> <value unit="" xsi:type="PQ" value="2 +" /> <interpretationCode codeSystem="local" code= "*" /> <referenceRange> < observationRange> <text>NEGATIVE</text> & lt;/observationRange> </referenceRange> </ observation> </component> <component> < observation moodCode="EVN" classCode="OBS"> < templateId root="2.16.840.1.951854.10.20.22.4.2" /> < id nullFlavor="NA" /> <code codeSystem="local&quot ; code="EPIU" displayName="UA EPITHELIAL CELLS" /> <statusCode code="completed" /> <effectiveTime value="871251676658" /> <value unit="epi/hpf" xsi:type="PQ" value="4+" /> <interpretationCode codeSystem="local" code="*" /> < referenceRange> <observationRange> <text> 0 - 1+</text></observationRange> </referenceRange> </observation> </component> <component> <observation moodCode="EVN" classCode="OBS"> <templateId root="2.16.840.1.936193.10.20.22.4.2" /> <id nullFlavor="NA" /> <code codeSystem=" local" code="RBCU" displayName="UA RBC" /> <statusCode code="completed" /> <effectiveTime value=& quot;966419563528" /> <value unit="rbc/hpf" xsi: type="PQ" value="0-3" /> <referenceRange> <observationRange> <text>0 - 3</text&gt ; </observationRange> </referenceRange> & lt;/observation> </component> <component> < observation moodCode="EVN" classCode="OBS"> < templateId root="2.16.840.1.755524.10.20.22.4.2" /> < id nullFlavor="NA" /> <code codeSystem="local&quot ; code="UAVOL" displayName="UA VOLUME FOR EXAM" /> <statusCode code="completed" /> <effectiveTime value="232086053292" /> <value unit="mL" xsi: type="PQ" value="12.0" /> <referenceRange&gt ; <observationRange> <text>(12mL STD)</ text> </observationRange> </referenceRange> &lt ;/observation> </component> <component> < observation moodCode="EVN" classCode="OBS"> < templateIdroot="2.16.840.1.924294.10.20.22.4.2" /> <id nullFlavor="NA" /> <code codeSystem="local" code="WBCU" displayName="UA WBC"/> < statusCode code="completed" /> <effectiveTime value=& quot;435443145667" /> <value unit="wbc/hpf" xsi: type="PQ" value="20-50" /> < interpretationCode codeSystem="local" code="*" /> <referenceRange> <observationRange> < text>0 - 5</text> </observationRange> </ referenceRange> </observation> </component> </ organizer> </entry> <entry> <organizer moodCode="EVN " classCode="BATTERY"> <templateId root=" 2.16.840.1.337913.10.20.22.4.1" /> <id nullFlavor="NA&quot ; /> <code codeSystem="local" code="LIVER" displayName="HEPATIC FUNCTION PANEL" /> <statusCode code=& quot;completed" /> <component> <observationmoodCode ="EVN" classCode="OBS"> <templateId root=& quot;2.16.840.1.136247.10.20.22.4.2" /> <id nullFlavor=&quot ;NA" /> <code codeSystem="local" code="BILUC& quot; displayName="BILI UNCONJUGATED" /> <statusCode code=& quot;completed" /> <effectiveTime value="949208152467& quot; /> <value unit="mg/dL" xsi:type="PQ" value="0.3" /> <referenceRange> < observationRange> <text>0.0-0.7</text> & lt;/observationRange> </referenceRange> </ observation> </component> <component> < observation moodCode="EVN" classCode="OBS"> < templateId root="2.16.840.1.319403.10..22.4.2" /> < id nullFlavor="NA" /> <code codeSystem="local&quot ; code="AST" displayName="AST/SGOT" /> < statusCode code="completed" /> <effectiveTime value=& quot;714742823840" /> <value unit="Units/L" xsi:type=&quot ;PQ" value="21" /> <referenceRange> <observationRange> <text>10-37</text> &lt ;/observationRange> </referenceRange> </observation& gt;</component> <component> <observation moodCode=& quot;EVN" classCode="OBS"> <templateId root=" 2.16.840.1.632097.10..22.4.2" /> <id nullFlavor="NA" /> <code codeSystem="local" code="ALT" displayName="ALT/SGPT" /> <statusCode code=" completed"/> <effectiveTime value="784587608231" / > <value unit="Units/L" xsi:type="PQ" value=& quot;21" /> <referenceRange> <observationRange&gt ; <text>< 66</text> </ observationRange> </referenceRange> </observation&gt ; </component> <component> <observation moodCode ="EVN" classCode="OBS"> <templateId root=& quot;2.16.840.1.023572.10.20.22.4.2" /> <id nullFlavor=&quot ;NA" /> <code codeSystem="local" code="TP& quot; displayName="TOTAL PROTEIN" /> <statusCode code=& quot;completed" /> <effectiveTime value="469131335921" /&gt ; <value unit="gm/dL" xsi:type="PQ" value=" 8.2" /> <referenceRange> <observationRange& gt; <text>6.4-8.2</text> </ observationRange> </referenceRange> </observation> </component> <component> <observation moodCode=& quot;EVN" classCode="OBS"> <templateId root=" 2.16.840.1.056039.10.20.22.4.2" /> <id nullFlavor="NA& quot; /> <code codeSystem="local" code="ALB" displayName="ALBUMIN" /> <statusCode code=" completed" /> <effectiveTime value="154705655314" /> <value unit="gm/dL" xsi:type="PQ" value=& quot;4.1" /> <referenceRange> < observationRange> <text>3.4-5.0</text> </ observationRange> </referenceRange> </observation&gt ; </component> <component> <observation moodCode ="EVN" classCode="OBS"> <templateId root=& quot;2.16.840.1.530205.10.20.22.4.2" /> <id nullFlavor=&quot ;NA" /> <code codeSystem="local" code="BILTOT " displayName="BILI TOTAL" /> <statusCode code=" completed" /> <effectiveTime value="936188287704" /> <value unit="mg/dL" xsi:type="PQ" value=& quot;0.4" /> <referenceRange> < observationRange> <text>0.0-1.0</text> & lt;/observationRange> </referenceRange> </ observation> </component> <component> < observation moodCode="EVN" classCode="OBS"> < templateId root="2.16.840.1.302294.10.20.22.4.2" /> < id nullFlavor="NA" /> <code codeSystem="local&quot ; code="ALKP" displayName="ALKALINE PHOSPHATASE TOTAL" /&gt ; <statusCode code="completed" /> < effectiveTime value="939654864422" /> <value unit=&quot ;IU/L" xsi:type="PQ" value="151" /> < interpretationCode codeSystem="local" code="*" /> <referenceRange> <observationRange> < text>45-117</text> </observationRange> </ referenceRange> </observation> </component> < component> <observation moodCode="EVN" classCode=" OBS"> <templateId root="2.16.840.1.288101.10.20.22.4.2& quot; /> <id nullFlavor="NA" /> <code codeSystem="local" code="BILC" displayName="BILI CONJUGATED" /> <statusCode code="completed" /> <effectiveTime value="847175258782" /> < value unit="mg/dL" xsi:type="PQ" value="0.1" /&gt ; <referenceRange> <observationRange> <text>0.0-0.3</text> </observationRange> </referenceRange> </observation> </component> </organizer> </entry> <entry> <organizer moodCode= "EVN" classCode="BATTERY"> <templateId root=&quot ;2.16.840.1.270184.10.20.22.4.1"/> <id nullFlavor="NA&quot ; /> <code codeSystem="local" code="LIP" displayName="LIPASE" /> <statusCode code="completed& quot; /> <component> <observation moodCode="EVN& quot; classCode="OBS"> <templateId root=" 2.16.840.1.814708.10.20.22.4.2" /> <id nullFlavor="NA& quot; /> <code codeSystem="local" code="LIP" displayName="LIPASE" /> <statusCode code=" completed" /> <effectiveTime value="414577747036" /> <value unit="Units/L" xsi:type="PQ" value= "165" /> <referenceRange> < observationRange> <text>73-393</text> &lt ;/observationRange> </referenceRange> </observation> </component> </organizer> </entry> <entry> &lt ;organizer moodCode="EVN" classCode="BATTERY"> < templateId root="2.16.840.1.533364.10.20.22.4.1" /> <id nullFlavor="NA" /> <code codeSystem="local" code= "UC" displayName="URINE CULTURE" /> <statusCode code="completed" /> <component> <observation moodCode="EVN" classCode="OBS"> <templateId root="2.16.840.1.525444.10.20.22.4.2" /> <id nullFlavor ="NA"/> <code codeSystem="local" code=" MB" displayName="Microbiology" /> <statusCode code ="completed" /> <effectiveTime value="607156419998 " /> <value xsi:type="ST" value="<pre>& lt;b>URINE CULTURE</b> See BelowURINE CULTURE(F) Shari Date/Time: 06/07/2016 11:30 Yohana Date/Time: 2015 11:34SOURCE: URINESPEC DESC: CLEAN CATCHTREATMENT OF ASYMPTOMATIC BACTERIURIA IS NOT USUALLYCLINICALLY INDICATED.MIXED GRAM POSITIVE?MIXED GR[facility] POSITIVE [facility] [place] [address]</pre&gt ;" /> <referenceRange> <observationRange&gt ; <text /> </observationRange> </ referenceRange> </observation> </component> </ organizer> </entry> <entry> <organizer moodCode="EVN " classCode="BATTERY"> <templateId root=" 2.16.840.1.156534.10.20.22.4.1" /> <id nullFlavor="NA&quot ; /> <code codeSystem="local" code="iCHEM8" displayName="CHEM/HEM PROFILE-BEDSIDE" /> <statusCode code= "completed" /> <component> <observation moodCode="EVN" classCode="OBS"> <templateId root="2.16.840.1.857606.10.20.22.4.2" /> <id nullFlavor ="NA" /> <code codeSystem="local" code=" K" displayName="POTASSIUM" /> <statusCode code=& quot;completed" /> <effectiveTime value="018550966141& quot; /> <value unit="mmol/L" xsi:type="PQ" value="4.1" /> <referenceRange> < observationRange> <text>3.5-5.3</text> </ observationRange> </referenceRange> </observation&gt ; </component> <component> <observation moodCode ="EVN" classCode="OBS"> <templateId root=& quot;2.16.840.1.256907.10.20.22.4.2" /> <id nullFlavor=&quot ;NA" /> <code codeSystem="local" code=" CMETHOD" displayName="METHOD" /> <statusCode code= "completed" /> <effectiveTime value="521431909835& quot; /> <value unit=""xsi:type="PQ" value=& quot;Bedside" /> <referenceRange> < observationRange> <text /> </ observationRange> </referenceRange> </observation&gt ; </component> <component> <observation moodCode=" EVN" classCode="OBS"> <templateId root=" 2.16.840.1.229127.10.20.22.4.2" /> <id nullFlavor="NA& quot; /> <code codeSystem="local" code="GAP" displayName="ANION GAP" /> <statusCode code=" completed" /> <effectiveTime value="455604133244" /> <value unit="mmol/L" xsi:type="PQ" value=& quot;18" /> <referenceRange> < observationRange> <text>10-20</text> < /observationRange> </referenceRange> </observation> </component> <component> <observation moodCode=& quot;EVN" classCode="OBS"> <templateId root=" 2.16.840.1.085769.10.20.22.4.2" /> <id nullFlavor="NA& quot; /> <code codeSystem="local" code="HMETHOD& quot; displayName="METHOD" /> <statusCode code=" completed" /> <effectiveTime value="731063129883" /> <value unit="" xsi:type="PQ" value=" Bedside" /> <referenceRange> <observationRange> <text /> </observationRange> </ referenceRange> </observation> </component> < component> <observation moodCode="EVN" classCode=" OBS"> <templateId root="2.16.840.1.335399.10.20.22.4.2& quot; /> <id nullFlavor="NA" /> <code codeSystem="local" code="GLU"displayName="GLUCOSE&quot ; /> <statusCode code="completed" /> < effectiveTime value="081673122324" /> <value unit=&quot ;mg/dL" xsi:type="PQ" value="105" /> < interpretationCode codeSystem="local" code="*" /> <referenceRange> <observationRange> < text>70-99</text> </observationRange> </ referenceRange> </observation> </component> < component> <observation moodCode="EVN" classCode=" OBS"> <templateId root="2.16.840.1.944574.10.20.22.4.2& quot; /> <id nullFlavor="NA" /> <code codeSystem= "local" code="BUN" displayName="BLOOD UREA NITROGEN& quot; /> <statusCode code="completed" /> & lt;effectiveTime value="922949699064" /> <value unit=& quot;mg/dL" xsi:type="PQ" value="5" /> < interpretationCode codeSystem="local" code="*" /> <referenceRange> <observationRange> < text>7-20</text> </observationRange> </ referenceRange> </observation> </component> < component> <observation moodCode="EVN" classCode=" OBS"> <templateId root="2.16.840.1.088468.10.20.22.4.2& quot; /> <id nullFlavor="NA" /> <code codeSystem="local" code="CREAT" displayName="CREATININE " /> <statusCode code="completed" /> & lt;effectiveTime value="129325585095" /> <value unit=& quot;mg/dL" xsi:type="PQ" value="0.7" /> & lt;referenceRange> <observationRange> <text& gt;0.6-1.0</text> </observationRange> </ referenceRange> </observation> </component> < component> <observation moodCode="EVN" classCode=" OBS"> <templateId root="2.16.840.1.276523.10.20.22.4.2& quot; /> <id nullFlavor="NA" /> <code codeSystem="local" code="HGBT" displayName="HEMOGLOBIN& quot; /> <statusCode code="completed" /> & lt;effectiveTime value="132679126742" /> <value unit=& quot;gm/dL" xsi:type="PQ" value="13.9" /> & lt;referenceRange> <observationRange> <text> 12.0-16.0</text> </observationRange> </ referenceRange> </observation> </component> < component> <observation moodCode="EVN" classCode=" OBS"> <templateId root="2.16.840.1.663034.10.20.22.4.2& quot; /> <id nullFlavor="NA" /> <code codeSystem="local" code="HCTT" displayName="HEMATOCRIT& quot; /> <statusCode code="completed" /> & lt;effectiveTime value="936073855795" /> <value unit=& quot;%" xsi:type="PQ" value="41.0" /> <referenceRange> <observationRange> < text>37.0-47.0</text> </observationRange> &lt ;/referenceRange> </observation> </component> & lt;component> <observation moodCode="EVN" classCode=&quot ;OBS"> <templateId root="2.16.840.1.432215.10.20.22.4.2 " /> <id nullFlavor="NA" /> <code codeSystem="local" code="NA" displayName="SODIUM" /> <statusCode code="completed" /> < effectiveTime value="703419580542" /> <value unit=&quot ;mmol/L" xsi:type="PQ" value="138" /> < referenceRange> <observationRange> <text>135- 148</text> </observationRange> </ referenceRange> </observation> </component> < component> <observation moodCode="EVN" classCode=" OBS"> <templateId root="2.16.840.1.365038.10.20.22.4.2& quot; /> <id nullFlavor="NA" /> <code codeSystem="local" code="CL" displayName="CHLORIDE&quot ; /> <statusCode code="completed" /> < effectiveTime value="187435871490" /> <value unit=&quot ;mmol/L" xsi:type="PQ" value="104"/> < referenceRange> <observationRange> <text> 98-110</text> </observationRange> </ referenceRange> </observation> </component> < component> <observation moodCode="EVN" classCode=" OBS"> <templateId root="2.16.840.1.759781.10..22.4.2& quot; /> <id nullFlavor="NA" /> <code codeSystem="local" code="CO2" displayName="CARBON DIOXIDE" /> <statusCode code="completed" /> <effectiveTime value="361353259780" /> <value unit= "mmol/L" xsi:type="PQ" value="21" /> & lt;referenceRange> <observationRange> <text& gt;21-32</text> </observationRange> </ referenceRange> </observation> </component> < component> <observation moodCode="EVN" classCode=" OBS"> <templateId root="2.16.840.1.743025.10..22.4.2& quot; /> <id nullFlavor="NA" /> <code codeSystem="local" code="CAION" displayName="CALCIUM IONIZED" /> <statusCode code="completed" /> <effectiveTime value="828686305549" /> < value unit="mg/dL" xsi:type="PQ" value="4.6" /&gt ; <referenceRange> <observationRange> <text>4.5-5.3</text> </observationRange> </referenceRange> </observation> </component> </organizer> </entry> <entry> <organizer moodCode= "EVN"classCode="BATTERY"> <templateId root=" 2.16.840.1.203785.10.20.22.4.1" /> <id nullFlavor="NA&quot ; /> <code codeSystem="local" code="LCBC" displayName="L100.0050" /> <statusCode code="completed " /> <component> <observation moodCode="EVN& quot; classCode="OBS"> <templateId root=" 2.16.840.1.095022.10.20.22.4.2" /> <idnullFlavor="NA& quot; /> <code codeSystem="local" code="100.0150& quot; displayName="WBC - WHITE BLOOD COUNT" /> < statusCode code="completed" /> <effectiveTime value=& quot;897237012855" /> <value unit="T/MM3" xsi:type ="PQ" value="7.7" /> <interpretationCode codeSystem="local" code="N" /> < referenceRange> <observationRange> <text> 4.5-11.0</text> </observationRange> </ referenceRange> </observation> </component> < component> <observation moodCode="EVN" classCode=" OBS"> <templateId root="2.16.840.1.291179.10.20.22.4.2& quot; /> <id nullFlavor="NA" /> <code codeSystem="local" code="100.0250" displayName="RED BLOOD COUNT" /> <statusCode code="completed" /&gt ; <effectiveTime value="814896862659" /> < value unit="M/MM3" xsi:type="PQ" value="4.56" /&gt ; <interpretationCode codeSystem="local" code="N&quot ; /> <referenceRange> <observationRange> <text>4.00-5.20</text> </observationRange> </referenceRange> </observation> </ component> <component> <observation moodCode="EVN& quot; classCode="OBS"> <templateId root=" 2.16.840.1.545902.10..22.4.2" /> <id nullFlavor="NA& quot; /> <code codeSystem="local" code="100.0300" displayName="HGB - HEMOGLOBIN" /> <statusCode code=& quot;completed" /> <effectiveTime value="779363722905& quot; /> <value unit="GM/DL" xsi:type="PQ" value="12.6" /> <interpretationCode codeSystem=" local" code="N" /> <referenceRange> <observationRange> <text>12-16</text> </observationRange> </referenceRange> </ observation> </component> <component> < observation moodCode="EVN" classCode="OBS"> < templateId root="2.16.840.1.088454.10.20.22.4.2" /> < id nullFlavor="NA" /> <code codeSystem="local&quot ; code="100.0400" displayName="HCT - HEMATOCRIT" /> <statusCode code="completed" /> <effectiveTime value="301656582080" /> <value unit="%& quot; xsi:type="PQ" value="39.4" /> < interpretationCode codeSystem="local" code="N" /> <referenceRange> <observationRange> < text>36-46</text> </observationRange> </ referenceRange> </observation> </component> < component> <observation moodCode="EVN" classCode=" OBS"> <templateId root="2.16.840.1.325067.10.20.22.4.2& quot; /> <id nullFlavor="NA" /> <code codeSystem="local" code="100.0550" displayName="MEAN CORPUSCULAR VOLUME" /> <statusCode code="completed&quot ; /> <effectiveTime value="361699093955" /> <value unit="UM3" xsi:type="PQ" value="86.4" /> <interpretationCode codeSystem="local" code="N& quot; /> <referenceRange> <observationRange> <text>80-100</text> </observationRange&gt ; </referenceRange> </observation> </ component> <component> <observation moodCode="EVN& quot; classCode="OBS"> <templateId root=" 2..840.1.164509.10.20.22.4.2" /> <id nullFlavor="NA& quot; /> <code codeSystem="local" code="100.0600& quot; displayName="MEAN CORPUSCULAR HGB" /> < statusCode code="completed" /> <effectiveTime value=& quot;878127383329" /> <value unit="UUG" xsi:type=& quot;PQ" value="27.6" /> <interpretationCode codeSystem="local" code="N" /> < referenceRange> <observationRange> <text> 26-34</text> </observationRange> </referenceRange> </observation> </component> <component> <observation moodCode="EVN" classCode="OBS"> <templateIdroot="2.16.840.1.707885.10.20.22.4.2" /> <id nullFlavor="NA" /> <code codeSystem="local& quot; code="100.0650" displayName="MEAN CORPUSCULAR HGB CONC([facility] " /> <statusCode code="completed" /> & lt;effectiveTime value="607138629935" /> <value unit=& quot;GM/DL" xsi:type="PQ" value="32.0" /> & lt;interpretationCode codeSystem="local" code="N" /> <referenceRange> <observationRange> &lt ;text>31-37</text> </observationRange> </ referenceRange> </observation> </component> < component> <observation moodCode="EVN" classCode=" OBS"> <templateId root="2.16.840.1.770269.10.20.22.4.2& quot; /> <id nullFlavor="NA" /> <code codeSystem="local" code="100.0750" displayName="RDW STANDARD DEVIATION" /> <statusCode code="completed&quot ; /> <effectiveTime value="703120472050" /> <value unit="FL" xsi:type="PQ" value="43.6" / > <interpretationCode codeSystem="local" code="N& quot; /> <referenceRange> <observationRange> <text>36.9-50.2</text> </ observationRange> </referenceRange> </observation> </component> <component> <observation moodCode=" EVN" classCode="OBS"> <templateId root=" 2.16.840.1.281221.10.20.22.4.2" /> <id nullFlavor="NA& quot; /> <code codeSystem="local" code="100.0850& quot; displayName="PLT - PLATELET COUNT" /> <statusCode code=& quot;completed" /> <effectiveTime value="394852052963& quot; /> <value unit="T/MM3" xsi:type="PQ" value="343"/> <interpretationCode codeSystem=" local" code="N" /><referenceRange> < observationRange> <text>130-400</text> & lt;/observationRange> </referenceRange> </ observation> </component> <component> < observation moodCode="EVN" classCode="OBS"> < templateId root="2.16.840.1.072303.10.20.22.4.2" /> < id nullFlavor="NA" /> <code codeSystem="local&quot ; code="100.0950" displayName="MEAN PLATELET VOLUME" /> <statusCode code="completed" /> < effectiveTime value="535722294779" /> <value unit="UM3&quot ; xsi:type="PQ" value="10.4" /> < interpretationCode codeSystem="local" code="N" /> <referenceRange> <observationRange> < text>9.4-12.4</text> </observationRange> < /referenceRange> </observation> </component> &lt ;component> <observation moodCode="EVN" classCode=" OBS"> <templateId root="2.16.840.1.063316.10.20.22.4.2& quot; /> <id nullFlavor="NA" /> <code codeSystem="local" code="100.1050" displayName=" NEUTROPHILS % (AUTO)" /> <statusCode code=" completed" /> <effectiveTime value="398831616497" /> <value unit="%" xsi:type="PQ" value="83.3" /> <interpretationCode codeSystem=" local" code="H" /> <referenceRange> < observationRange> <text>33-66</text> < /observationRange> </referenceRange> </observation& gt; </component> <component> <observation moodCode="EVN" classCode="OBS"> <templateId root=& quot;2.16.840.1.942500.10.20.22.4.2" /> <id nullFlavor=&quot ;NA" /> <code codeSystem="local" code=" 100.1100" displayName="LYMPHOCYTES % (AUTO)" /> <statusCode code="completed"/> <effectiveTime value="010571490046" /> <value unit="%& quot; xsi:type="PQ" value="11.1" /> < interpretationCode codeSystem="local" code="L" /> <referenceRange> <observationRange> < text>23-45</text> </observationRange> </ referenceRange> </observation> </component> < component> <observation moodCode="EVN" classCode=" OBS"> <templateId root="2.16.840.1.504937.10.20.22.4.2& quot; /> <id nullFlavor="NA" /> <code codeSystem="local" code="100.1150" displayName=" MONOCYTES % (AUTO)" /> <statusCode code=" completed" /> <effectiveTime value="566352370091" /> <value unit="%" xsi:type="PQ" value=& quot;4.8" /> <interpretationCode codeSystem="local&quot ; code="N" /> <referenceRange> < observationRange> <text>0-9.0</text> < /observationRange> </referenceRange> </observation& gt; </component> <component> <observation moodCode=& quot;EVN" classCode="OBS"> <templateId root=" 2.16.840.1.334425.10.20.22.4.2" /> <id nullFlavor="NA& quot; /> <code codeSystem="local" code="100.1200" displayName="EOSINOPHILS % (AUTO)" /> < statusCode code="completed" /> <effectiveTime value=& quot;112771716849" /> <value unit="%" xsi: type="PQ" value="0.1" /> <interpretationCode codeSystem="local" code="N" /> < referenceRange> <observationRange> <text>0-4& lt;/text> </observationRange> </referenceRange& gt; </observation> </component> <component> <observation moodCode="EVN" classCode="OBS"> <templateId root="2.16.840.1.803023.10.20.22.4.2" /> <id nullFlavor="NA" /> <code codeSystem=&quot ;local" code="100.1250" displayName="BASOPHILS % ( AUTO)" /> <statusCode code="completed" /> <effectiveTime value="634721576094" /> <value unit="%" xsi:type="PQ" value="0.4" /> <interpretationCode codeSystem="local" code="N" /> <referenceRange> <observationRange> <text>0-2</text> </observationRange> </referenceRange> </observation> </component> <component> <observation moodCode="EVN" classCode="OBS"> <templateId root=" 2.16.840.1.008765.10.20.22.4.2" /> <id nullFlavor="NA& quot; /> <code codeSystem="local" code="100.1275& quot; displayName="IMMATURE GRANULOCYTE % (AUTO)" /> <statusCode code="completed" /> <effectiveTime value="154372733584" /> <value unit="%& quot; xsi:type="PQ" value="0.3" /> < interpretationCode codeSystem="local" code="N" /> <referenceRange> <observationRange> < text>0.0-0.5</text> </observationRange> </ referenceRange> </observation> </component> < component> <observation moodCode="EVN" classCode=" OBS"> <templateId root="[id number]& quot; /> <id nullFlavor="NA" /> <code codeSystem="local" code="100.1300" displayName=" NEUTROPHILS # (AUTO)" /><statusCode code="completed" /> <effectiveTime value="[id number]" /> < value unit="T/MM3" xsi:type="PQ" value="6.4" /&gt ; <interpretationCode codeSystem="local" code="N&quot ; /> <referenceRange> <observationRange> <text>1.8-7.7</text> </observationRange> </referenceRange> </observation> </component& gt; <component> <observation moodCode="EVN" classCode="OBS"> <templateId root=" 2.16.840.1.188534.10.20.22.4.2" /> <id nullFlavor="NA& quot; /> <code codeSystem="local" code="100.1350& quot; displayName="LYMPHOCYTES # (AUTO)" /> < statusCode code="completed" /> <effectiveTime value=& quot;170861749078" /> <value unit="T/MM3" xsi:type ="PQ" value="0.9" /> <interpretationCode codeSystem="local" code="L" /> < referenceRange> <observationRange> <text>1 -4.8</text> </observationRange> </ referenceRange> </observation> </component> < component> <observation moodCode="EVN" classCode=" OBS"> <templateId root="2.16.840.1.733891.10.20.22.4.2& quot; /> <id nullFlavor="NA" /> <code codeSystem="local" code="100.1400" displayName=" MONOCYTES # (AUTO)" /> <statusCode code="completed&quot ; /> <effectiveTime value="792750534660" /> <value unit="T/MM3" xsi:type="PQ" value="0.4&quot ; /> <interpretationCode codeSystem="local" code=" N" /> <referenceRange> <observationRange&gt ; <text>0-0.8</text> </observationRange& gt;</referenceRange> </observation> </component> <component> <observation moodCode="EVN" classCode=& quot;OBS"> <templateId root=" 2.16.840.1.355393.10.20.22.4.2" /> <id nullFlavor="NA& quot; /> <code codeSystem="local" code="100.1450& quot; displayName="EOSINOPHILS # (AUTO)" /> < statusCode code="completed" /> <effectiveTime value=& quot;553907128597" /> <value unit="T/MM3" xsi:type ="PQ" value="0.0" /> <interpretationCode codeSystem="local" code="N" /> < referenceRange> <observationRange> <text>0-0.5</ text> </observationRange> </referenceRange> </observation> </component> <component> <observation moodCode="EVN" classCode="OBS"> <templateId root="2.16.840.1.490528.10.20.22.4.2" /> <id nullFlavor="NA" /> <code codeSystem=" local" code="100.1500" displayName="BASOPHILS # (AUTO)&quot ; /> <statusCode code="completed" /> < effectiveTime value="685811692086" /> <value unit=&quot ;T/MM3" xsi:type="PQ" value="0.0" /> < interpretationCode codeSystem="local" code="N" /> &lt ;referenceRange> <observationRange> <text&gt ;0-0.2</text> </observationRange> </ referenceRange> </observation> </component> < component> <observation moodCode="EVN" classCode=" OBS"> <templateId root="2.16.840.1.854682.10.20.22.4.2& quot; /> <id nullFlavor="NA" /> <code codeSystem="local" code="100.1525" displayName=" IMMATURE GRANULOCYTE # (AUTO)" /> <statusCode code=" completed" /> <effectiveTime value="740530627922" /> <value unit="T/MM3" xsi:type="PQ" value=& quot;0.02" /> <interpretationCode codeSystem="local" code="N" /> <referenceRange> < observationRange> <text>0.00-0.03</text> &lt ;/observationRange> </referenceRange> </observation& gt;</component> </organizer> </entry> <entry> & lt;organizer moodCode="EVN" classCode="BATTERY"> &lt ;templateId root="2.16.840.1.477663.10.20.22.4.1" /> <id nullFlavor="NA" /> <code codeSystem="local" code= "LUADMRC" displayName="L600.0175" /> <statusCode code="completed" /> <component> <observation moodCode="EVN" classCode="OBS"> <templateId root="2.16.840.1.118762.10.20.22.4.2" /> <id nullFlavor= "NA" /> <code codeSystem="local" code=" 600.0500" displayName="SPECIMEN TYPE, URINE" /> < statusCode code="completed" /> <effectiveTime value=& quot;553583970363" /> <value unit="" xsi:type=& quot;PQ" value="CLEANCATCH-MIDSTREAM" /> < interpretationCode codeSystem="local" code="N" /> <referenceRange> <observationRange> < text /> </observationRange> </referenceRange&gt ; </observation> </component> <component> & lt;observation moodCode="EVN" classCode="OBS"> < templateId root="2.16.840.1.342041.10.20.22.4.2" /> < id nullFlavor="NA" /> <code codeSystem="local&quot ; code="600.0550" displayName="COLOR,URINE" /> & lt;statusCode code="completed" /><effectiveTime value=" 584261756740" /> <value unit="" xsi:type="PQ& quot; value="YELLOW" /> <interpretationCode codeSystem= "local" code="N" /> <referenceRange> <observationRange> <text>YELLOW</text> </observationRange> </referenceRange> </ observation> </component> <component> < observation moodCode="EVN" classCode="OBS"> < templateId root="2.16.840.1.365318.10.20.22.4.2" /> < id nullFlavor="NA" /> <code codeSystem="local&quot ; code="600.0600" displayName="TURBIDITY, URINE" /> <statusCode code="completed" /> <effectiveTime value="878199761926" /> <value unit="" xsi: type="PQ" value="CLEAR" /> < interpretationCode codeSystem="local" code="N" /> <referenceRange> <observationRange> < text>CLEAR</text> </observationRange> </ referenceRange> </observation> </component> < component> <observation moodCode="EVN" classCode=" OBS"> <templateId root="2.16.840.1.894782.10.20.22.4.2& quot; /> <id nullFlavor="NA" /> <code codeSystem="local" code="600.0650" displayName=" SPECIFIC GRAVITY,URINE" /> <statusCode code="completed& quot; /> <effectiveTime value="305473528137" /> <value unit="" xsi:type="PQ" value=">= 1.030" /> <interpretationCode codeSystem="local" code="Aguliar" /> <referenceRange> < observationRange> <text>1.015-1.025</text> </observationRange> </referenceRange> </ observation> </component> <component> < observation moodCode="EVN" classCode="OBS"> < templateId root="2.16.840.1.263287.10.20.22.4.2" /> < id nullFlavor="NA" /> <code codeSystem="local&quot ; code="600.0700" displayName="PH, URINE - DIPSTICK" /> <statusCode code="completed" /> < effectiveTime value="280663743657" /> <value unit="" xsi:type="PQ" value="5.0" /> < interpretationCode codeSystem="local" code="N" /> <referenceRange> <observationRange> <text >5.0-8.0</text> </observationRange> </ referenceRange> </observation> </component> < component> <observation moodCode="EVN" classCode=" OBS"> <templateId root="2..840.1.414361.10.20.22.4.2& quot; /> <id nullFlavor="NA" /> <code codeSystem="local" code="600.0750" displayName=" LEUKOCYTE ESTERASE ,URINE" /> <statusCode code=" completed" /> <effectiveTime value="831555630626" /> <value unit="" xsi:type="PQ" value=" NEGATIVE" /> <interpretationCode codeSystem="local&quot ; code="N" /> <referenceRange> < observationRange> <text>NEGATIVE</text> & lt;/observationRange> </referenceRange> </ observation> </component> <component> < observation moodCode="EVN" classCode="OBS"> < templateId root="2.16.840.1.836152.10.20.22.4.2" /> < id nullFlavor="NA" /> <code codeSystem="local&quot ; code="600.0800" displayName="NITRITE,URINE" /> <statusCode code="completed" /> <effectiveTime value="576787150532" /> <value unit="" xsi: type="PQ" value="NEGATIVE" /> < interpretationCode codeSystem="local" code="N" /> <referenceRange> <observationRange> <text> NEGATIVE</text> </observationRange> </ referenceRange> </observation> </component> < component> <observation moodCode="EVN" classCode=" OBS"> <templateId root="2.16.840.1.656513.10.20.22.4.2& quot; /> <id nullFlavor="NA" /> <code codeSystem="local" code="600.0850" displayName="PROTEIN ,URINE - DIPSTICK" /> <statusCode code="completed&quot ; /> <effectiveTime value="092636257274" /> <value unit="" xsi:type="PQ" value="NEGATIVE&quot ; /> <interpretationCode codeSystem="local" code=" N" /> <referenceRange> <observationRange&gt ; <text>NEGATIVE</text> </ observationRange> </referenceRange> </observation&gt ; </component> <component> <observation moodCode ="EVN" classCode="OBS"> <templateId root=& quot;2.16.840.1.163863.10.20.22.4.2" /> <id nullFlavor=&quot ;NA" /> <code codeSystem="local" code=" 600.0900" displayName="GLUCOSE, URINE - DIPSTICK" /> < statusCode code="completed" /> <effectiveTime value=& quot;106002160950" /> <value unit="" xsi:type=& quot;PQ" value="NEGATIVE" /> <interpretationCode codeSystem="local" code="N" /> <referenceRange> <observationRange> <text>NEGATIVE</text&gt ; </observationRange> </referenceRange> & lt;/observation> </component> <component> < observation moodCode="EVN" classCode="OBS"> < templateId root="2.16.840.1.830007.10.20.22.4.2" /> < id nullFlavor="NA" /> <code codeSystem="local&quot ; code="600.0950" displayName="KETONES,URINE - DIPSTICK" /& gt; <statusCode code="completed" /> < effectiveTime value="792476604164" /> <value unit="& quot; xsi:type="PQ" value="3+" /> < interpretationCode codeSystem="local" code="Aa" /> <referenceRange> <observationRange> < text>NEGATIVE</text> </observationRange> < /referenceRange> </observation> </component> &lt ;component> <observation moodCode="EVN" classCode=" OBS"> <templateId root="2.16.840.1.144031.10.20.22.4.2& quot; /> <idnullFlavor="NA" /> <code codeSystem="local" code="600.1000" displayName=" UROBILINOGEN,URINE" /> <statusCode code="completed&quot ; /> <effectiveTime value="712697412795" /> <value unit="EU/DL" xsi:type="PQ" value="0.2&quot ; /> <interpretationCode codeSystem="local" code=" N" /> <referenceRange> <observationRange&gt ; <text>NORMAL</text> </observationRange& gt; </referenceRange> </observation> </ component> <component> <observation moodCode="EVN& quot; classCode="OBS"> <templateId root=" 2.16.840.1.125276.10.20.22.4.2" /> <id nullFlavor="NA& quot; /> <code codeSystem="local" code="600.1050& quot; displayName="BILIRUBIN,URINE - DIPSTICK" /> < statusCode code="completed" /> <effectiveTime value=" 040818719263" /> <value unit="" xsi:type="PQ& quot; value="1+" /> <interpretationCode codeSystem=& quot;local" code="Aa" /> <referenceRange> <observationRange> <text>NEGATIVE</text> </observationRange> </referenceRange> </ observation> </component> <component> < observation moodCode="EVN" classCode="OBS"> < templateId root="2.16.840.1.561161.10.20.22.4.2" /> < id nullFlavor="NA" /> <code codeSystem="local&quot ; code="600.1100" displayName="BLOOD, URINE" /> <statusCode code="completed" /> <effectiveTime value ="233995377510" /> <value unit="" xsi:type=& quot;PQ" value="2+" /> <interpretationCode codeSystem="local" code="Aa" /> <referenceRange& gt; <observationRange> <text>NEGATIVE</ text> </observationRange> </referenceRange> </observation> </component> <component> <observation moodCode="EVN" classCode="OBS"> <templateId root="2.16.840.1.441110.10.20.22.4.2" /> <id nullFlavor="NA" /> <code codeSystem=" local" code="600.1200" displayName="WBC,URINE" /> <statusCode code="completed" /> < effectiveTime value="393067089333" /> <value unit=&quot ;/HPF" xsi:type="PQ" value="0-1" /> < interpretationCode codeSystem="local" code="N" /> <referenceRange> <observationRange> <text& gt;0-5</text> </observationRange> </ referenceRange> </observation> </component>< component> <observation moodCode="EVN" classCode=" OBS"> <templateId root="2.16.840.1.079498.10.20.22.4.2" /> <id nullFlavor="NA" /> <code codeSystem="local" code="600.1250" displayName="RBC, URINE" /> <statusCode code="completed" /> <effectiveTime value="408773198461" /> <value unit="/HPF" xsi:type="PQ" value="3-5" /> <interpretationCode codeSystem="local" code="Aguilar" /&gt ; <referenceRange> <observationRange> & lt;text>0-3</text> </observationRange> </ referenceRange> </observation> </component> < component> <observation moodCode="EVN" classCode=" OBS"> <templateId root="2.16.840.1.234859.10.20.22.4.2& quot; /> <id nullFlavor="NA" /> <code codeSystem="local" code="600.1300" displayName=" SQUAMOUS EPITHELIAL CELL,UR" /> <statusCode code=" completed" /> <effectiveTime value="412788861604" /> <value unit="" xsi:type="PQ" value="5 -10" /> <interpretationCode codeSystem="local" code="N" /> <referenceRange> < observationRange> <text /> </ observationRange> </referenceRange> </observation&gt ; </component> <component> <observation moodCode= "EVN" classCode="OBS"> <templateId root=&quot ;2.16.840.1.701425.10.20.22.4.2" /> <id nullFlavor="NA& quot; /> <code codeSystem="local" code="600.1450& quot; displayName="BACTERIA,URINE" /> <statusCode code= "completed" /> <effectiveTime value="022037262512& quot; /> <value unit="" xsi:type="PQ" value=& quot;4+" /> <interpretationCode codeSystem="local&quot ; code="Aguilar" /> <referenceRange> <observationRange > <text>NEGATIVE</text> </ observationRange> </referenceRange> </observation&gt ; </component> <component> <observation moodCode ="EVN" classCode="OBS"> <templateId root=" 2.16.840.1.859623.10.20.22.4.2" /> <id nullFlavor="NA& quot; /> <code codeSystem="local" code="600.1800& quot; displayName="MUCUS,URINE" /> <statusCode code=& quot;completed" /> <effectiveTime value="254426260055& quot; /> <value unit="" xsi:type="PQ" value=& quot;PRESENT" /> <interpretationCode codeSystem="local& quot; code="N" /> <referenceRange> < observationRange> <text /> </observationRange&gt ; </referenceRange></observation> </component> <component> <observation moodCode="EVN" classCode ="OBS"> <templateId root=" 2.16.840.1.593617.10..22.4.2" /> <id nullFlavor="NA& quot; /> <code codeSystem="local" code="600.1850& quot; displayName="HYALINE CASTS, URINE" /> <statusCode code=& quot;completed" /> <effectiveTime value="686939199692& quot; /> <value unit="/LPF" xsi:type="PQ" value="0-1" /> <interpretationCode codeSystem=" local" code="N" /> <referenceRange> <observationRange> <text /> </ observationRange> </referenceRange> </observation&gt ; </component> <component> <observation moodCode ="EVN" classCode="OBS"> <templateId root=& quot;2.16.840.1.820999.10.20.22.4.2" /> <id nullFlavor=&quot ;NA" /> <code codeSystem="local" code=" 600.2400" displayName="CULTURE SET UP,URINE" /> < statusCode code="completed" /> <effectiveTime value=& quot;711275279607" /> <value unit="" xsi:type=& quot;PQ" value="CULT NOT INDICATED" /> < interpretationCode codeSystem="local" code="N" /> <referenceRange> <observationRange> <text /&gt ; </observationRange> </referenceRange> </ observation> </component> </organizer> </entry> & lt;entry> <organizer moodCode="EVN" classCode="BATTERY& quot;> <templateId root="2.16.840.1.662318.10.20.22.4.1" /& gt; <id nullFlavor="NA" /> <code codeSystem=" local" code="LPREGU" displayName="L600.2900" /> <statusCode code="completed" /> <component> <observation moodCode="EVN" classCode="OBS"> <templateId root="2.16.840.1.653049.10.20.22.4.2" /> & lt;id nullFlavor="NA" /> <code codeSystem="local& quot; code="600.3000" displayName="PREG QUAL, URINE TEST" /& gt; <statusCode code="completed" /> < effectiveTime value="702413751364" /> <value unit=&quot ;" xsi:type="PQ" value="NEGATIVE" /> < interpretationCode codeSystem="local" code="N" /> <referenceRange> <observationRange> <text> NEGATIVE</text> </observationRange> </ referenceRange> </observation> </component> </ organizer> </entry> <entry> <organizer moodCode="EVN " classCode="BATTERY"> <templateId root=" 2.16.840.1.838907.10.20.22.4.1" /> <id nullFlavor="NA&quot ; /> <code codeSystem="local" code="LCMP" displayName="L200.0020" /> <statusCode code="completed " /> <component> <observation moodCode="EVN& quot; classCode="OBS"> <templateId root=" 2.16.840.1.142620.10.20.22.4.2" /> <id nullFlavor="NA& quot; /> <code codeSystem="local" code="200.0097& quot; displayName="ICTERUS" /> <statusCode code=" completed" /> <effectiveTime value="421638150411" /> <value unit="" xsi:type="PQ" value="& amp;lt; 2" /> <interpretationCode codeSystem="local& quot; code="N" /> <referenceRange> < observationRange> <text>0-7</text> </ observationRange> </referenceRange> </observation&gt ; </component> <component> <observation moodCode ="EVN" classCode="OBS"> <templateId root=& quot;2.16.840.1.039260.10.20.22.4.2" /> <id nullFlavor=&quot ;NA" /> <code codeSystem="local" code=" 200.0098" displayName="HEMOLYSIS" /> <statusCode code="completed" /> <effectiveTime value=" 191009354192" /> <value unit="" xsi:type="PQ& quot; value="< 15" /> <interpretationCode codeSystem="local" code="N" /> < referenceRange> <observationRange> <text>0-25& lt;/text> </observationRange> </referenceRange& gt; </observation> </component> <component> <observation moodCode="EVN" classCode="OBS"> <templateId root="2.16.840.1.534838.10.20.22.4.2" /> & lt;id nullFlavor="NA" /> <code codeSystem="local& quot; code="200.0099" displayName="TURBIDITY" /> <statusCode code="completed" /> <effectiveTime value="856613028785" /> <value unit="" xsi: type="PQ" value="< 20" /> < interpretationCode codeSystem="local" code="N" /> <referenceRange> <observationRange> < text>0-20</text> </observationRange> </ referenceRange> </observation> </component> < component> <observation moodCode="EVN" classCode=" OBS"> <templateId root="2.16.840.1.804033.10.20.22.4.2& quot; /> <id nullFlavor="NA" /> <code codeSystem="local" code="200.0100" displayName="SODIUM& quot; /> <statusCode code="completed" /> < effectiveTime value="831646160824" /> <value unit=&quot ;MEQ/L" xsi:type="PQ" value="142" /> < interpretationCode codeSystem="local" code="N" /> < referenceRange> <observationRange> <text> 134-144</text> </observationRange> </ referenceRange> </observation> </component> < component> <observation moodCode="EVN" classCode=" OBS"> <templateId root="2.16.840.1.593402.10.20.22.4.2& quot; /> <id nullFlavor="NA" /> <code codeSystem="local" code="200.0150" displayName=" POTASSIUM" /> <statusCode code="completed" /> <effectiveTime value="393030724265" /> < value unit="MEQ/L" xsi:type="PQ" value="3.9" /&gt ; <interpretationCode codeSystem="local" code="N&quot ; /> <referenceRange> <observationRange> <text>3.6-5</text> </observationRange> </referenceRange> </observation> </component> <component> <observation moodCode="EVN" classCode=& quot;OBS"> <templateId root="2.16.840.1.820002.10.20.22.4.2& quot; /> <id nullFlavor="NA" /> <code codeSystem="local" code="200.0200" displayName=" CHLORIDE" /> <statusCode code="completed" /> <effectiveTime value="764072036115" /> < value unit="MEQ/L" xsi:type="PQ" value="107" /&gt ; <interpretationCode codeSystem="local" code="N&quot ; /> <referenceRange> <observationRange> <text>98-107</text> </observationRange> </referenceRange> </observation> </component> <component> <observation moodCode="EVN" classCode ="OBS"> <templateId root=" 2.16.840.1.588521.10.20.22.4.2" /> <id nullFlavor="NA& quot; /> <code codeSystem="local" code="200.0250& quot; displayName="CO2 - CARBON DIOXIDE" /> < statusCode code="completed" /> <effectiveTime value=& quot;197925620156" /> <value unit="MEQ/L" xsi:type ="PQ" value="20" /> <interpretationCode codeSystem="local" code="L" /> < referenceRange> <observationRange> <text> 22-30</text> </observationRange> </ referenceRange> </observation> </component> < component> <observation moodCode="EVN" classCode=" OBS"> <templateId root="2.16.840.1.823377.10.20.22.4.2& quot; /> <id nullFlavor="NA" /> <code codeSystem="local" code="200.0300" displayName="ANION GAP" /> <statusCode code="completed" /> <effectiveTime value="971679799408" /> <value unit=" MEQ/L" xsi:type="PQ" value="15" /> < interpretationCode codeSystem="local" code="N" /> <referenceRange> <observationRange> < text>5-15</text> </observationRange> </ referenceRange> </observation> </component> < component> <observation moodCode="EVN" classCode=" OBS"> <templateId root="2.16.840.1.762659.10.20.22.4.2& quot; /> <id nullFlavor="NA" /> <code codeSystem="local" code="200.0350" displayName="BLOOD UREA NITROGEN" /> <statusCode code="completed" /& gt; <effectiveTime value="761447241900" /> &lt ;value unit="MG/DL" xsi:type="PQ" value="15.0" /& gt; <interpretationCode codeSystem="local" code="N& quot; /> <referenceRange> <observationRange> <text>7-17</text> </observationRange&gt ; </referenceRange> </observation> </component> <component> <observation moodCode="EVN" classCode= "OBS"> <templateId root=" 2.16.840.1.833824.10.20.22.4.2" /> <id nullFlavor="NA& quot; /> <code codeSystem="local" code="200.0400& quot; displayName="CREATININE" /> <statusCode code=& quot;completed" /> <effectiveTime value="829318218846& quot; /> <value unit="MG/DL" xsi:type="PQ" value="0.6" /> <interpretationCode codeSystem=" local" code="L" /> <referenceRange> <observationRange> <text>0.7-1.2</text> </observationRange> </referenceRange> </observation& gt; </component> <component> <observation moodCode="EVN" classCode="OBS"> <templateId root="2.16.840.1.063156.10.20.22.4.2" /> <id nullFlavor ="NA" /> <code codeSystem="local" code=" 200.0450" displayName="BUN/CREATININE RATIO" /> < statusCode code="completed" /> <effectiveTime value=& quot;133678831522" /> <value unit="RATIO" xsi:type ="PQ" value="25"/> <interpretationCode codeSystem="local" code="N" /><referenceRange> <observationRange> <text>6-26</text> </observationRange> </referenceRange> </ observation> </component> <component> < observation moodCode="EVN" classCode="OBS"> < templateId root="2.16.840.1.028824.10.20.22.4.2" /> <id nullFlavor="NA" /> <code codeSystem="local" code="200.0475" displayName="GLOMERULAR FILTRATION RATE" /& gt; <statusCode code="completed" /> < effectiveTime value="014321208243" /> <value unit="&quot ; xsi:type="PQ" value="107" /> < interpretationCode codeSystem="local" code="N" /> <referenceRange> <observationRange> < text /> </observationRange> </referenceRange> </observation> </component> <component> <observation moodCode="EVN" classCode="OBS"> <templateId root="2.16.840.1.771154.10.20.22.4.2" /> <id nullFlavor="NA" /> <code codeSystem=" local" code="200.0500" displayName="GLUCOSE" /> <statusCode code="completed" /> < effectiveTime value="072412881633" /> <value unit=&quot ;MG/DL" xsi:type="PQ" value="110" /> < interpretationCode codeSystem="local" code="N" /> <referenceRange> <observationRange> < text>65-110</text> </observationRange> </ referenceRange> </observation> </component> < component> <observation moodCode="EVN" classCode=" OBS"> <templateId root="2.16.840.1.570066.10.20.22.4.2& quot; /> <id nullFlavor="NA" /> <code codeSystem="local" code="200.0550" displayName=" OSMOLALITY,CALCULATED" /> <statusCode code="completed&quot ; /> <effectiveTime value="827691604786" /> <value unit="MOSM/KG" xsi:type="PQ" value="275& quot; /> <interpretationCode codeSystem="local" code=& quot;N" /> <referenceRange> <observationRange& gt; <text>261-280</text> </ observationRange> </referenceRange> </observation&gt ; </component> <component> <observation moodCode ="EVN" classCode="OBS"> <templateId root=& quot;2.16.840.1.890277.10.20.22.4.2" /> <id nullFlavor=&quot ;NA" /> <code codeSystem="local" code=" 200.0600" displayName="CALCIUM" /> <statusCode code="completed" /> <effectiveTime value=" 668813865944" /> <value unit="MG/DL" xsi:type=& quot;PQ" value="9.3" /> <interpretationCode codeSystem="local" code="N" /> < referenceRange> <observationRange> <text>8.4- 10.2</text> </observationRange> </ referenceRange> </observation> </component> < component> <observation moodCode="EVN" classCode=" OBS"> <templateId root="2.16.840.1.482399.10.20.22.4.2& quot; /> <id nullFlavor="NA" /> <code codeSystem="local" code="200.0650" displayName=" BILIRUBIN,TOTAL" /> <statusCode code="completed" / > <effectiveTime value="326906227801" /> < value unit="MG/DL" xsi:type="PQ" value="0.70" /&gt ; <interpretationCode codeSystem="local" code="N&quot ; /> <referenceRange> <observationRange> <text>0.20-1.30</text> </observationRange&gt ; </referenceRange> </observation> </component> <component> <observation moodCode="EVN" classCode=& quot;OBS"> <templateIdroot=" 2.16.840.1.801557.10.20.22.4.2" /> <id nullFlavor="NA& quot; /> <code codeSystem="local" code="200.0950& quot; displayName="ALKALINEPHOSPHATASE" /> <statusCode code="completed" /> <effectiveTime value=" 632618533550" /> <value unit="U/L" xsi:type=" PQ" value="149" /> <interpretationCode codeSystem= "local" code="H" /> <referenceRange> <observationRange><text>38-126</text> </ observationRange> </referenceRange> </observation&gt ; </component> <component> <observation moodCode ="EVN" classCode="OBS"> <templateId root=& quot;2.16.840.1.529415.10.20.22.4.2" /> <id nullFlavor=&quot ;NA" /> <code codeSystem="local" code=" 200.1000" displayName="TOTAL PROTEIN" /> <statusCode code= "completed" /> <effectiveTime value="147296116237& quot; /> <value unit="G/DL" xsi:type="PQ" value="7.5" /> <interpretationCode codeSystem=" local" code="N" /> <referenceRange> <observationRange> <text>6.3-8.2</text> </observationRange> </referenceRange> </ observation> </component> <component> < observation moodCode="EVN" classCode="OBS"> < templateId root="2.16.840.1.378505.10.20.22.4.2" /> < id nullFlavor="NA" /> <code codeSystem="local&quot ; code="200.1050" displayName="ALBUMIN" /> < statusCode code="completed" /> <effectiveTime value=& quot;190259076042" /> <value unit="G/DL" xsi:type= "PQ" value="4.1" /> <interpretationCode codeSystem="local" code="N" /> < referenceRange> <observationRange> <text> 3.5-5.0</text> </observationRange> </ referenceRange> </observation> </component> < component> <observation moodCode="EVN" classCode=" OBS"> <templateId root="2.16.840.1.590887.10.20.22.4.2& quot; /> <id nullFlavor="NA" /> <code codeSystem="local" code="200.1100" displayName=" GLOBULIN" /> <statusCode code="completed" /> <effectiveTime value="622534512474" /> < value unit="G/DL" xsi:type="PQ" value="3.4" /> <interpretationCode codeSystem="local" code="N&quot ; /> <referenceRange> <observationRange> &lt ;text>2.4-3.6</text> </observationRange> < /referenceRange> </observation> </component> &lt ;component> <observation moodCode="EVN" classCode=" OBS"> <templateId root="2.16.840.1.926799.10.20.22.4.2& quot; /> <id nullFlavor="NA" /> <code codeSystem="local" code="200.1150" displayName="ALBUMIN /GLOBULIN RATIO" /> <statusCode code="completed" / > <effectiveTime value="508272819374" /> & lt;value unit="RATIO" xsi:type="PQ" value="1.2" /& gt; <interpretationCode codeSystem="local" code="N& quot; /> <referenceRange> <observationRange> <text>1.1-2.2</text> </observationRange& gt; </referenceRange> </observation> </ component> <component> <observation moodCode="EVN& quot; classCode="OBS"> <templateId root=" 2.16.840.1.188024.10.20.22.4.2" /> <id nullFlavor="NA& quot; /> <code codeSystem="local" code="200.1200& quot; displayName="AST (SGOT)" /> <statusCode code=& quot;completed" /> <effectiveTime value="642750220249& quot; /> <value unit="U/L" xsi:type="PQ" value=&quot ;29" /> <interpretationCode codeSystem="local" code="N" /> <referenceRange> < observationRange> <text>14-36</text> < /observationRange> </referenceRange> </observation& gt; </component> <component> <observation moodCode="EVN" classCode="OBS"> <templateId root="2.16.840.1.699714.10.20.22.4.2" /> <id nullFlavor ="NA" /> <code codeSystem="local" code=" 200.1250" displayName="ALT (SGPT)" /> <statusCode code="completed" /> <effectiveTime value="372543281032& quot; /> <value unit="U/L" xsi:type="PQ" value="29" /> <interpretationCode codeSystem=" local" code="N" /> <referenceRange> <observationRange> <text>9-52</text> & lt;/observationRange> </referenceRange> </ observation> </component> </organizer> </entry> & lt;entry> <organizer moodCode="EVN" classCode="BATTERY& quot;> <templateId root="2.16.840.1.585475.10.20.22.4.1" /& gt; <id nullFlavor="NA" /> <code codeSystem=" local" code="LLIP" displayName="L200.1950" /> & lt;statusCode code="completed" /> <component> &lt ;observation moodCode="EVN" classCode="OBS"> &lt ;templateId root="2.16.840.1.353405.10.20.22.4.2" /> < id nullFlavor="NA" /> <code codeSystem="local&quot ; code="200.1950" displayName="LIPASE" /> < statusCode code="completed" /> <effectiveTime value=& quot;499676090574" /> <value unit="U/L" xsi:type=& quot;PQ" value="132" /> <interpretationCode codeSystem="local" code="N" /> <referenceRange> <observationRange> <text>23-300</text&gt ; </observationRange> </referenceRange> & lt;/observation> </component> </organizer> </entry&gt ; <entry> <organizer moodCode="EVN" classCode=" BATTERY"> <templateId root="2.16.840.1.309467.10.20.22.4.1& quot; /> <id nullFlavor="NA" /> <code codeSystem ="local" code="LTROPIH" displayName="L200.1848" /& gt; <statusCode code="completed" /> <component> <observation moodCode="EVN" classCode="OBS"> <templateId root="2.16.840.1.153562.10.20.22.4.2" /> <id nullFlavor="NA" /> <code codeSystem=& quot;local" code="200.0098" displayName="HEMOLYSIS" /& gt; <statusCode code="completed" /> < effectiveTime value="972814455142" /> <value unit=&quot ;" xsi:type="PQ" value="< 15" /> &lt ;interpretationCode codeSystem="local" code="N" /> <referenceRange> <observationRange> < text>0-25</text> </observationRange> </ referenceRange> </observation> </component> < component> <observation moodCode="EVN" classCode=" OBS"> <templateId root="2.16.840.1.481604.10.20.22.4.2& quot; /> <id nullFlavor="NA" /> <code codeSystem="local" code="200.1850" displayName=" TROPONIN I" /> <statusCode code="completed" /> <effectiveTime value="519790586728" /> <value unit="ng/ml" xsi:type="PQ" value="< 0.012" /> <interpretationCode codeSystem="local" code="N& quot; /> <referenceRange> <observationRange> <text>0-0.12</text> </observationRange& gt; </referenceRange> </observation> </component& gt; </organizer> </entry> <entry> <organizer moodCode="EVN" classCode="BATTERY"> <templateId root="2.16.840.1.576313.10.20.22.4.1" /> <id nullFlavor=& quot;NA" /> <code codeSystem="local" code=" LTROPIH" displayName="L200.1848" /> <statusCode code=& quot;completed" /> <component> <observation moodCode="EVN" classCode="OBS"> <templateId root="2.16.840.1.566448.10.20.22.4.2" /> <id nullFlavor ="NA" /> <code codeSystem="local" code=" 200.0098" displayName="HEMOLYSIS" /> <statusCode code="completed" /> <effectiveTime value=" 729787603999" /> <value unit="" xsi:type="PQ& quot;value="< 15" /> <interpretationCode codeSystem="local" code="N" /> < referenceRange> <observationRange> <text>0-25</text > </observationRange> </referenceRange> </observation> </component> <component> &lt ;observation moodCode="EVN" classCode="OBS"> &lt ;templateId root="2.16.840.1.359735.10.20.22.4.2" /> < id nullFlavor="NA" /> <code codeSystem="local&quot ; code="200.1850" displayName="TROPONIN I" /> & lt;statusCode code="completed" /> <effectiveTime value= "569012406923" /> <value unit="ng/ml" xsi: type="PQ" value="< 0.012" /> < interpretationCode codeSystem="local" code="N" /> & lt;referenceRange> <observationRange> <text& gt;0-0.12</text> </observationRange> </ referenceRange> </observation> </component> </ organizer> </entry> <entry> <organizermoodCode="EVN& quot; classCode="BATTERY"> <templateId root=" 2.16.840.1.375721.10.20.22.4.1" /> <id nullFlavor="NA&quot ; /> <code codeSystem="local" code="HGB" displayName="HEMOGLOBIN" /> <statusCode code=" completed" /> <component> <observation moodCode=& quot;EVN" classCode="OBS"> <templateId root=" 2.16.840.1.388818.10..22.4.2" /> <id nullFlavor="NA& quot; /> <code codeSystem="local" code="MCV" displayName="MEAN CELL VOLUME" /> <statusCode code=& quot;completed" /> <effectiveTime value="559003555479& quot; /> <value unit="fl" xsi:type="PQ" value ="89.1" /> <referenceRange> < observationRange> <text>80.0-100.0</text> &lt ;/observationRange> </referenceRange> </observation& gt; </component> <component> <observation moodCode="EVN" classCode="OBS"> <templateId root="2.16.840.1.115310.10..22.4.2" /> <id nullFlavor=&quot ;NA" /> <code codeSystem="local" code="HGBT& quot; displayName="HEMOGLOBIN" /> <statusCode code=& quot;completed" /> <effectiveTime value="472333059228& quot; /> <value unit="gm/dL" xsi:type="PQ" value="10.8" /> <interpretationCode codeSystem=" local" code="*" /> <referenceRange> <observationRange> <text>12.0-16.0</text> </observationRange> </referenceRange> </ observation> </component> </organizer> </entry> & lt;entry> <organizer moodCode="EVN" classCode="BATTERY& quot;> <templateId root="2.16.840.1.968668.10.20.22.4.1" /& gt; <id nullFlavor="NA" /> <code codeSystem=" local" code="ALC" displayName="ALCOHOL (ETHANOL) SERUM&quot ; /> <statusCode code="completed" /> <component& gt; <observation moodCode="EVN" classCode="OBS"&gt ; <templateId root="2.16.840.1.683424.10.20.22.4.2" /> <id nullFlavor="NA" /> <code codeSystem=& quot;local" code="ALC" displayName="ALCOHOL (ETHANOL) SERUM& quot; /> <statusCode code="completed" /> & lt;effectiveTime value="064930296048" /> <value unit=& quot;mg/dL" xsi:type="PQ" value="< 10" /> <referenceRange> <observationRange> < text> < 10</text> </observationRange> </referenceRange> </observation> </component> & lt;/organizer> </entry> <entry> <organizer moodCode=&quot ;EVN" classCode="BATTERY"> <templateId root=" 2.16.840.1.254090.10.20.22.4.1"/> <id nullFlavor="NA" /> <code codeSystem="local" code="PT" displayName ="PROTHROMBIN TIME WITH INR" /> <statusCode code=" completed" /> <component> <observation moodCode=& quot;EVN" classCode="OBS"> <templateId root=" 2.16.840.1.322110.10.20.22.4.2" /> <id nullFlavor="NA&quot ; /> <code codeSystem="local" code="INRX" displayName="INTERNATIONAL NORMAL RATIO" /> < statusCode code="completed" /> <effectiveTime value=& quot;767405474613" /> <value unit="" xsi:type=& quot;PQ" value="1.1" /> <referenceRange> <observationRange> <text>0.9-1.1</text> &lt ;/observationRange> </referenceRange> </observation& gt; </component> <component> <observation moodCode="EVN" classCode="OBS"> <templateId root="2.16.840.1.546611.10.20.22.4.2" /> <id nullFlavor ="NA" /> <code codeSystem="local" code=" PTPAT" displayName="PROTHROMBIN TIME" /> < statusCode code="completed" /> <effectiveTime value=& quot;077732892191" /> <value unit="sec" xsi:type=& quot;PQ" value="12.6" /> <referenceRange> <observationRange> <text>10.0-12.8</text> </observationRange> </referenceRange> </ observation> </component> </organizer> </entry> &lt ;entry> <organizer moodCode="EVN" classCode="BATTERY& quot;> <templateId root="2.16.840.1.201702.10.20.22.4.1" /& gt; <id nullFlavor="NA" /> <code codeSystem=" local" code="FIB" displayName="FIBRINOGEN" /> & lt;statusCode code="completed" /> <component> < observation moodCode="EVN" classCode="OBS"> < templateId root="2.16.840.1.296964.10.20.22.4.2" /> < id nullFlavor="NA" /> <code codeSystem="local&quot ; code="FIB" displayName="FIBRINOGEN" /> < statusCode code="completed" /> <effectiveTime value=& quot;316721268716" /> <value unit="mg/dL" xsi:type ="PQ" value="252" /> <referenceRange> <observationRange> <text>200-400</text> </observationRange> </referenceRange> </ observation> </component> </organizer> </entry> & lt;entry> <organizer moodCode="EVN" classCode="BATTERY& quot;> <templateId root="2.16.840.1.864773.10.20.22.4.1" /& gt; <id nullFlavor="NA" /> <code codeSystem=" local" code="METAB" displayName="METABOLIC PANEL, BASIC&quot ; /> <statusCode code="completed" /> <component& gt; <observation moodCode="EVN" classCode="OBS"&gt ; <templateId root="2.16.840.1.740203.10.20.22.4.2" /> <id nullFlavor="NA" /> <code codeSystem=" local" code="K" displayName="POTASSIUM" /> <statusCode code="completed" /> <effectiveTime value ="501847541987" /> <value unit="mmol/L" xsi: type="PQ" value="4.0" /> <referenceRange> <observationRange> <text>3.5-5.3</text& gt; </observationRange> </referenceRange> </observation> </component> <component> < observation moodCode="EVN" classCode="OBS"> < templateId root="2.16.840.1.046077.10..22.4.2" /> < id nullFlavor="NA" /> <code codeSystem="local" code="eGFR" displayName="EST GFR (MDRD)" /> < statusCode code="completed" /> <effectiveTime value=& quot;009611427127" /> <value unit="mL/min" xsi: type="PQ" value="> 60" /> < referenceRange> <observationRange> <text>& amp;gt; 59</text> </observationRange> </ referenceRange> </observation> </component> < component> <observation moodCode="EVN" classCode=" OBS"> <templateId root="2.16.840.1.240869.10..22.4.2& quot; /> <id nullFlavor="NA" /> <code codeSystem ="local" code="GAP" displayName="ANION GAP" /> <statusCode code="completed" /> < effectiveTime value="371513667206" /> <value unit=&quot ;mmol/L" xsi:type="PQ" value="8" /> < referenceRange> <observationRange> <text> 5-15</text> </observationRange> </ referenceRange> </observation> </component> < component> <observation moodCode="EVN" classCode=" OBS"> <templateId root="2.16.840.1.268028.10.20.22.4.2& quot; /> <id nullFlavor="NA" /> <code codeSystem="local" code="eCrCl" displayName="EST CrCl ( CG)" /> <statusCode code="completed" /> <effectiveTime value="494702362677" /> <value unit ="mL/min" xsi:type="PQ" value="> 60" /> <referenceRange> <observationRange> <text>> 59</text> </observationRange> </referenceRange> </observation> </component& gt; <component> <observation moodCode="EVN" classCode="OBS"> <templateId root=" 2.16.840.1.748102.10.20.22.4.2" /> <id nullFlavor="NA& quot; /> <code codeSystem="local" code="GLU" displayName="GLUCOSE" /> <statusCode code=" completed" /> <effectiveTime value="989967719560" /> <value unit="mg/dL" xsi:type="PQ" value=& quot;154" /> <interpretationCode codeSystem="local&quot ; code="*" /> <referenceRange> < observationRange> <text>70-99</text> < /observationRange> </referenceRange> </observation& gt; </component> <component> <observation moodCode ="EVN" classCode="OBS"> <templateId root=" 2.16.840.1.189131.10.20.22.4.2" /> <id nullFlavor="NA& quot; /> <code codeSystem="local" code="CA" displayName="CALCIUM" /> <statusCode code=" completed" /> <effectiveTime value="518030840625" /> <value unit="mg/dL" xsi:type="PQ" value=& quot;8.4" /> <interpretationCode codeSystem="local&quot ; code="*" /> <referenceRange> < observationRange> <text>8.5-10.1</text> </ observationRange> </referenceRange> </observation&gt ; </component> <component> <observation moodCode ="EVN" classCode="OBS"> <templateId root=& quot;2.16.840.1.963934.10.20.22.4.2" /> <id nullFlavor=&quot ;NA" /> <code codeSystem="local" code="BUN& quot; displayName="BLOOD UREA NITROGEN" /> <statusCode code="completed" /> <effectiveTime value=" 401844261047" /> <value unit="mg/dL" xsi:type=& quot;PQ" value="11" /> <referenceRange> <observationRange> <text>7-20</text> </observationRange> </referenceRange></observation& gt; </component> <component> <observation moodCode="EVN" classCode="OBS"> <templateId root="2.16.840.1.607186.10.20.22.4.2" /> <id nullFlavor ="NA" /> <code codeSystem="local" code=" CREAT" displayName="CREATININE" /> <statusCode code="completed" /> <effectiveTime value=" 990150449196" /> <value unit="mg/dL" xsi:type=" PQ" value="0.8" /> <referenceRange> < observationRange> <text>0.6-1.0</text> & lt;/observationRange> </referenceRange> </ observation> </component> <component> < observation moodCode="EVN" classCode="OBS"> < templateId root="2.16.840.1.772939.10.20.22.4.2" /> < id nullFlavor="NA" /> <code codeSystem="local&quot ; code="NA" displayName="SODIUM" /> < statusCode code="completed" /> <effectiveTime value=& quot;747710898560" /> <value unit="mmol/L" xsi: type="PQ" value="139" /> <referenceRange> <observationRange> <text>135-148</text&gt ; </observationRange> </referenceRange> & lt;/observation> </component> <component> < observation moodCode="EVN" classCode="OBS"> < templateId root="2.16.840.1.355750.10.20.22.4.2" /> < id nullFlavor="NA" /> <code codeSystem="local&quot ; code="CL" displayName="CHLORIDE" /> < statusCode code="completed" /> <effectiveTime value=& quot;812402671762" /> <value unit="mmol/L" xsi: type="PQ" value="106" /> <referenceRange> <observationRange> <text>98-110</text&gt ; </observationRange> </referenceRange> </ observation> </component> <component> < observation moodCode="EVN" classCode="OBS"> < templateId root="2.16.840.1.883124.10.20.22.4.2" /> < id nullFlavor="NA" /> <code codeSystem="local&quot ; code="CO2" displayName="CARBON DIOXIDE" /> &lt ;statusCode code="completed" /> <effectiveTime value=& quot;445358168384" /> <value unit="mmol/L" xsi: type="PQ"value="25" /> <referenceRange> <observationRange> <text>21-32</text> </observationRange> </referenceRange> </ observation> </component> </organizer> </entry> & lt;entry> <organizer moodCode="EVN" classCode="BATTERY& quot;> <templateId root="2.16.840.1.133107.10.20.22.4.1" /& gt; <id nullFlavor="NA" /> <code codeSystem=" local" code="CBC" displayName="CBC" /> < statusCode code="completed" /> <component> < observation moodCode="EVN" classCode="OBS"> < templateId root="2.16.840.1.191188.10.20.22.4.2" /> < id nullFlavor="NA" /> <code codeSystem="local&quot ; code="MCH" displayName="MEAN CELL HGB" /> < statusCode code="completed" /> <effectiveTime value=& quot;227989164177" /> <value unit="pg" xsi:type=& quot;PQ" value="28.7" /> <referenceRange> <observationRange> <text>27.0-33.0</text> </observationRange> </referenceRange> < /observation> </component> <component> < observation moodCode="EVN" classCode="OBS"> < templateId root="2.16.840.1.088661.10.20.22.4.2" /> < id nullFlavor="NA" /> <code codeSystem="local&quot ; code="MCHC" displayName="MEAN CELL HGB CONCENTRATION" /&gt ; <statusCode code="completed" /> < effectiveTime value="245648188488" /> <value unit=&quot ;g/dL" xsi:type="PQ" value="32.6" /> < referenceRange> <observationRange> <text> 32.0-37.0</text> </observationRange> </ referenceRange> </observation> </component> < component> <observation moodCode="EVN" classCode=" OBS"> <templateId root="2.16.840.1.921818.10.20.22.4.2& quot; /> <id nullFlavor="NA" /> <code codeSystem="local" code="MCV" displayName="MEAN CELL VOLUME" /> <statusCode code="completed" /> <effectiveTime value="791493473970" /> <value unit=& quot;fl" xsi:type="PQ" value="88.0" /> < referenceRange> <observationRange> <text> 80.0-100.0</text> </observationRange> </ referenceRange> </observation> </component> < component> <observation moodCode="EVN" classCode=" OBS"> <templateId root="2.16.840.1.454840.10.20.22.4.2& quot; /> <id nullFlavor="NA" /> <code codeSystem="local" code="MPVT" displayName="MEAN PLATELET VOLUME" /> <statusCode code="completed" / > <effectiveTime value="708886050165" /> & lt;value unit="fl" xsi:type="PQ" value="11.0" /&gt ; <interpretationCode codeSystem="local" code="*&quot ; /> <referenceRange> <observationRange> & lt;text>8.5-10.9</text> </observationRange> & lt;/referenceRange> </observation> </component> <component> <observation moodCode="EVN" classCode=& quot;OBS"> <templateId root="2.16.840.1.845468.10.20.22.4.2& quot; /> <id nullFlavor="NA" /> <code codeSystem="local" code="RBC" displayName="RED BLOOD CELL" /> <statusCode code="completed" /> <effectiveTime value="776410370459" /> <value unit="m/cumm" xsi:type="PQ" value="3.17" /> <interpretationCode codeSystem="local" code="*" /& gt; <referenceRange> <observationRange> <text>4.00-6.00</text> </observationRange> </referenceRange> </observation> </component&gt ; <component> <observation moodCode="EVN" classCode="OBS"> <templateId root=" 2.16.840.1.953816.10.20.22.4.2" /> <id nullFlavor="NA& quot; /><code codeSystem="local" code="RDW" displayName="RED CELL DISTRIBUTION WIDTH" /> < statusCode code="completed" /> <effectiveTime value=& quot;484962486631" /> <value unit="%" xsi: type="PQ" value="14.2" /> <referenceRange&gt ; <observationRange> <text>11.0-15.6</ text> </observationRange> </referenceRange> </observation> </component> <component> <observation moodCode="EVN" classCode="OBS"> <templateId root="2.16.840.1.122606.10.20.22.4.2" /> <id nullFlavor="NA" /> <code codeSystem="local&quot ; code="WBC" displayName="WHITE BLOOD CELL" /> & lt;statusCode code="completed" /> <effectiveTime value= "765533236789" /> <value unit="k/cumm" xsi: type="PQ" value="10.4" /> < interpretationCode codeSystem="local" code="*" /> <referenceRange> <observationRange> < text>5.0-10.0</text> </observationRange> < /referenceRange> </observation> </component> &lt ;component> <observation moodCode="EVN" classCode=" OBS"> <templateId root="2.16.840.1.860487.10.20.22.4.2& quot; /> <id nullFlavor="NA" /> <code codeSystem="local" code="HGBT" displayName="HEMOGLOBIN& quot; /> <statusCodecode="completed" /> &lt ;effectiveTime value="649609368378" /> <value unit="gm/ dL" xsi:type="PQ" value="9.1" /> < interpretationCode codeSystem="local" code="*" /> <referenceRange> <observationRange> < text>12.0-16.0</text></observationRange> </ referenceRange> </observation> </component> < component> <observation moodCode="EVN" classCode=" OBS"> <templateId root="2.16.840.1.670652.10.20.22.4.2& quot; /> <id nullFlavor="NA" /> <code codeSystem="local" code="HCTT" displayName="HEMATOCRIT& quot; /> <statusCode code="completed" /> &lt ;effectiveTime value="298651672044" /> <value unit=& quot;%" xsi:type="PQ" value="27.9" /> <interpretationCode codeSystem="local" code="*" /&gt ; <referenceRange> <observationRange> <text>37.0-47.0</text> </observationRange> </referenceRange> </observation> </component> <component> <observation moodCode="EVN" classCode ="OBS"> <templateId root=" 2.16.840.1.491077.10.20.22.4.2" /> <id nullFlavor="NA& quot; /> <code codeSystem="local" code="NRBC&# 37;" displayName="NRBC %" /> <statusCode code="completed" /> <effectiveTime value=" 954256069479" /> <value unit="/100WBC" xsi:type=& quot;PQ" value="0.0" /> <referenceRange> <observationRange> <text>0.0-0.0</text> </observationRange> </referenceRange> </ observation> </component> <component> < observation moodCode="EVN" classCode="OBS"> < templateId root="2.16.840.1.136075.10.20.22.4.2" /> < id nullFlavor="NA" /> <code codeSystem="local&quot ; code="PLTT" displayName="PLATELET COUNT" /> & lt;statusCode code="completed" /> <effectiveTime value= "510647557171" /> <value unit="k/cumm" xsi: type="PQ" value="355" /> <referenceRange> <observationRange> <text>150-400</text> </observationRange> </referenceRange> < /observation> </component> </organizer> </entry>& lt;/section> Encounters ACCT No. Visit Discharge Status Pt. Type Provider Facility Loc./Unit Complaint Date/Time [id number] 09/13/2017 09/13/2017 DIS Outpatien [facility] [place] [facility] 07:21:00 07:21:00 t ELIZABETH Golden MD, [facility] [id number] 10/22/2011 Document 09:40:00 Registrat ion [id number] 12/04/2010 Document 14:58:00 Registrat ion [id number] 12/05/2015 12/05/2015 DIS Outpatien [facility] [place] [facility] 10:04:00 10:04:00 t ELIZABETH Golden MD, [facility] [id number] 01/27/2015 01/27/2015 DIS Outpatien [facility] [place] [facility] 12:57:00 12:57:00 t ELIZABETH Golden MD, [facility] [id number] 11/08/2016 11/08/2016 DIS Emergency [facility] ED 579 07:33:00 12:31:00 [facility] [id number] 10/18/2015 10/18/2015 DIS Outpatien [address] [facility] Mur IC TOE/ELBOW 122 16:11:00 23:59:00 t , Clinic PAIN Anupama L [id number] 06/07/2016 06/07/2016 DIS Emergency [facility] [facility] 10:26[id number] 12/31/2015 DIS Outpatien 15:25:21 15:25:21 t [id number] 11/15/2017 ACT Inpatient [facility] [place] [facility]:06[id number] 11/17/2015 11/17/2015 CLS Outpatien Jason, 16:43:00 23:59:59 akbar Barba [id number] 11/17/2015 11/17/2015 CLS Outpatien Gomez, 14:00:00 23:59:59 akbar Barba [id number] 01/27/2015 ACT Document 12:58:13 Registrat ion [id number] 09/12/2017 09/12/2017 DIS Outpatien [facility] 1 14:43:01 15:10:37 t ese CASTANEDA, ben Chen
[2017-11-23 12:59] VITALS: BMI 37.9
[2017-11-23] MEDS: Oxycodone *IR* 5 MG TABLET PO PRN ×3 (13:20→20:31)
[2017-11-23] MEDS: LORazepam 2 MG TABLET PO PRN ×2 (14:54→20:30)
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
[2017-11-23] MEDS: POLYETHYL GLYCOL 3350 17gm PACKET PO SCH (17:49)
[2017-11-23] MEDS: SENNOSIDES 8.6 MG TABLET PO SCH (20:30)
[2017-11-23] MEDS: ENOXAPARIN 30 MG/0.3 ML INJECTION SQ SCH (20:31)
[2017-11-23] MEDS ORDERED: TEMAZEPAM 30 MG CAPSULE PO SCH (21:00)
[2017-11-24] MEDS: Oxycodone *IR* 5 MG TABLET PO PRN ×6 (02:52→23:54)
[2017-11-24] MEDS: TRAMADOL 50 MG TABLET PO PRN ×4 (02:56→20:46)
[2017-11-24] MEDS: PANTOPRAZOLE 20 MG TABLET PO SCH (06:25)
[2017-11-24] MEDS: LORazepam 2 MG TABLET PO PRN ×3 (07:19→23:15)
[2017-11-24] MEDS: CYANOCOBALAMIN (B-12) 500mcg TABLET PO SCH (08:33)
[2017-11-24] MEDS: VILAZODONE 40 MG TABLET PO SCH (08:34)
[2017-11-24] MEDS: FERROUS SULFATE 324 MG TABLET PO SCH (08:34)
[2017-11-24] MEDS: LISINOPRIL 20 MG TABLET PO SCH (08:34)
[2017-11-24] MEDS: ASCORBIC ACID 500 MG TABLET PO SCH (08:34)
[2017-11-24] MEDS: MULTI-VIT + MINERAL (Opti-gen) TABLET PO SCH (08:34)
[2017-11-24] MEDS: MAGNESIUM OXIDE 400 MG TABLET PO SCH (08:34)
[2017-11-24] MEDS: FLUoxetine 20 MG CAPSULE PO SCH (08:34)
[2017-11-24] MEDS: ENOXAPARIN 30 MG/0.3 ML INJECTION SQ SCH ×2 (08:35→20:43)
[2017-11-24] MEDS: POLYETHYL GLYCOL 3350 17gm PACKET PO SCH (08:35)
--- NOTE | 2017-11-24 10:19 | IRU 24Hr Post Admit Eval ---
24 Hr Post Admission Physical - Relevant Changes Relevant Changes: No Reviewed: I have reviewed the patient's information and concur with the finding and results of the pre-admission screen. Certification: I certify the patient for rehabilitation. - Patient Condition (1) Status post ORIF of fracture of ankle Status: Acute Code(s): Z96.7 - Presence of other bone and tendon implants; Z87.81 - Personal history of (healed) traumatic fracture Classification: Present on IRF Admission, IRF Tx That Should Address Diagnosis, Diagnosis Requiring Medical Follow Up (2) Hypertension Status: Chronic Qualifiers: Hypertension type: essential hypertension Qualified Code(s): I10 - Essential (primary) hypertension Code(s): I10 - Essential (primary) hypertension Classification: Present on IRF Admission, IRF Tx That Should Address Diagnosis, Diagnosis Requiring Medical Follow Up (3) Post traumatic stress disorder (PTSD) Status: Chronic Code(s): F43.10 - Post-traumatic stress disorder, unspecified Classification: Present on IRF Admission, IRF Tx That Should Address Diagnosis, Diagnosis Requiring Medical Follow Up (4) Laceration of thigh, left Status: Acute Qualifiers: Encounter type: subsequent encounter Qualified Code(s): S71.112D - Laceration without foreign body, left thigh, subsequent encounter Code(s): S71.112A - Laceration without foreign body, left thigh, initial encounter Classification: IRF Tx That Should Address Diagnosis, Diagnosis Requiring Medical Follow Up (5) Slow transit constipation Status: Acute Code(s): K59.01 - Slow transit constipation Classification: Present on IRF Admission, IRF Tx That Should Address Diagnosis, Diagnosis Requiring Medical Follow Up (6) Anemia due to acute blood loss Status: Acute Code(s): D62 - Acute posthemorrhagic anemia Classification: Present on IRF Admission, IRF Tx That Should Address Diagnosis, Diagnosis Requiring Medical Follow Up - Prior Functional Status Lives With: With Family Residence Type: Apartment/Private Home Assitive Devices: None Prior Functional Status: Indep. at home or school, Indep. w/ IADL - Current Functional Status Current Level of Function: Currently this patient is independent for eating but requires supervision for grooming, minimum assistance for bathing, supervision for upper body dressing, minimum assistance for lower body dressing and toileting as well as toilet transfers. She requires moderate assistance for bed/chair/wheelchair transfers, minimum assistance for walking with a rolling walker 5 feet. She is nonweightbearing on the right lower extremity until released by orthopedics. Failed Alternative Therapy: Arrived from Acute Care Patient Requirements: The patient requires oversight by rehabilitation physician to manage their rehabilitation treatment plan and multidisciplinary approach to care that can only be provided in an IRF and requires a multidisciplinary approach to care, provided by professional PTs, OTs, STs, dieticians, RTs, rehabilitation nurses and is not available in lesser levels of care. Limitations Req: Mobility Impairment, ADL Impairment Physical Therapy Minutes: 90 Occupational Therapy Minutes: 90 Therapy: The patient is to receive therapy at least 5 days a week. - Complications/Comorbidities Impact on Functional Outcomes: The patient's underlying PTSD and anxiety may negatively impact her functional outcome. In addition her nonweightbearing status on the right lower extremity will impact her functional outcome. Barriers to Discharge: Balance, Endurance, Pain Control - Plan to Avoid Complications Plan to Avoid Complications: The patient cannot receive this care in a lesser intensive setting such as [facility] or Outpatient Therapy due to the patient requiring the following : Patient requires close monitoring of her anxiety and PTSD as well as blood pressure. She requires [place] to monitor wound healing and to prevent wound infections. She requires a multidisciplinary approach with physical therapy and occupational therapy with medical supervision in view of her acute blood loss anemia and orthopedic issues.
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
[2017-11-24] MEDS: TEMAZEPAM 15 MG CAPSULE PO SCH (20:43)
[2017-11-24] MEDS: SENNOSIDES 8.6 MG TABLET PO SCH (23:45)
[2017-11-25] MEDS: Oxycodone *IR* 5 MG TABLET PO PRN ×5 (04:07→21:14)
[2017-11-25] MEDS: TRAMADOL 50 MG TABLET PO PRN ×2 (05:58→15:50)
[2017-11-25] MEDS: LORazepam 2 MG TABLET PO PRN ×3 (05:59→15:55)
[2017-11-25] MEDS: PANTOPRAZOLE 20 MG TABLET PO SCH (05:59)
[2017-11-25] MEDS: MULTI-VIT + MINERAL (Opti-gen) TABLET PO SCH (08:47)
[2017-11-25] MEDS: MAGNESIUM OXIDE 400 MG TABLET PO SCH (08:47)
[2017-11-25] MEDS: VILAZODONE 40 MG TABLET PO SCH (08:47)
[2017-11-25] MEDS: LISINOPRIL 20 MG TABLET PO SCH (08:48)
[2017-11-25] MEDS: FLUoxetine 20 MG CAPSULE PO SCH (08:48)
[2017-11-25] MEDS: POLYETHYL GLYCOL 3350 17gm PACKET PO SCH (08:51)
[2017-11-25] MEDS: ASCORBIC ACID 500 MG TABLET PO SCH (08:51)
[2017-11-25] MEDS: FERROUS SULFATE 324 MG TABLET PO SCH (08:51)
--- NOTE | 2017-11-25 09:56 | Progress Note ---
Progress Note: Pt requested IM B12 as opposed to taking 10 pills daily (hospital only has 500mcg pills). Discussed with pharm - will switch to 1000mcg IM qd.
[2017-11-25] MEDS: CYANOCOBALAMIN (B-12) 1,000mcg/ml INJECTION IM SCH (10:57)
[2017-11-25] MEDS: ENOXAPARIN 30 MG/0.3 ML INJECTION SQ SCH ×2 (10:58→21:10)
[2017-11-25] MEDS: CYANOCOBALAMIN (B-12) 500mcg TABLET PO SCH (10:59)
[2017-11-25] MEDS: MAG-AL + SIM ORAL LIQUID 30ml PO PRN (11:14)
--- NOTE | 2017-11-25 11:16 | IRU Progress Note ---
- Subjective/Serverity of Illness Date: 11/25/17 Rachel was interviewed and examined in the gymnasium area with therapists present on acute inpatient rehabilitation. She reports she is having some itching and discomfort in the right lower extremity. This is worse when the leg is hanging down and is improved with ice or with elevation. She was able to sleep quite well last night. She reports that she had a good bowel movement. She declined the MiraLAX today. She denies any chest pain or shortness of breath. She has been able to eat adequately. She has developed increasing anxiety and states that her heartburn is related to her anxiety. In this regard we will give some Maalox. She has been seen by psychiatry with results pending at the time of this dictation. She remains on multiple agents including Prozac, vibrated and lorazepam. She is cooperative with therapy. She is making some progress but just getting started. Update on medical issues we are actively monitoring and managing as follows: 1. s/p ORIF right ankle fracture: She states she would like to look at the wound. At the present time there is no indication to change the dressing. We will monitor this. Pain appears to adequately be controlled at present. 2. Left thigh full thickness laceration: stable 3. Acute blood loss anemia to 7.3: Repeat hemoglobin is 7.9. Her iron studies are consistent with acute blood loss anemia rather than a chronic iron deficiency. 4. benign essential hypertension: Her blood pressures appear to be adequately controlled at present. 5. PTSD and anxiety requiring regular doses of anxiolytics and antidepressants. She has been seen by psychiatry with results pending. This morning she is having more anxiety related reflux she states. Maalox will be initiated as well as her usual antianxiety program. Exam Vital Signs: Temperature 98.4 F 11/25/17 08:00 Pulse Rate 99 11/25/17 08:00 Respiratory Rate 20 11/25/17 08:00 Blood Pressure 138/63 11/25/17 08:00 Pulse Oximetry 98 11/25/17 08:00 Height/Weight/BMI: Height 1.65 m Weight 103.3 kg Body Mass Index 37.9 - Constitutional Present: mild distress (anxiety), well nourished, well developed, obese, cooperative - Routine HEENT Exam Head: Present: normocephalic Eye: Present: EOMI, PERRL ENT: Present: mucous membranes moist, oropharynx clear - Routine Neck Exam Present: supple - Routine Respiratory Exam Present: CTA bilaterally. Absent: wheezes - Routine Cardiovascular Exam Present: RRR, S1, S2, murmur - Routine Abdominal Exam Present: soft, normoactive bowel sounds, non distended. Absent: tenderness - Routine Extremities Exam Present: no edema, normal capillary refill Comments: Right lower extremity remains wrapped at present. She remains nonweightbearing on the right lower extremity. - Routine Skin Exam Present: dry, warm - Routine Neurological Exam Present: alert, oriented X3, CN II-XII intact - Routine Psychiatric Exam Present: cooperative, good insight, good judgment, anxious Results IRU - Labs Labs: I reviewed laboratory findings as well as other providers notes. IRU A/P (1) Status post ORIF of fracture of ankle Current visit: Yes Status: Acute Pain management appears to be adequate. Pain is worse with the leg came down and is improved with elevation. She remains nonweightbearing and is cooperative with therapy. (2) Hypertension Qualifiers: Hypertension type: essential hypertension Qualified Code(s): I10 - Essential (primary) hypertension Current visit: Yes Status: Chronic Her blood pressures are adequately controlled at present. (3) Post traumatic stress disorder (PTSD) Current visit: Yes Status: Chronic She reports anxiety this morning which is resulting in more reflux. We will start some Maalox. She has been seen by psychiatry and those results are pending. (4) Laceration of thigh, left Qualifiers: Encounter type: subsequent encounter Qualified Code(s): S71.112D - Laceration without foreign body, left thigh, subsequent encounter Current visit: Yes Status: Acute (5) Slow transit constipation Current visit: Yes Status: Acute Reports a good bowel movement and she declined the Miralax. (6) Anemia due to acute blood loss Current visit: Yes Status: Acute Her iron studies would be more consistent with acute blood loss anemia rather than chronic iron deficiency. Hemoglobin is stable to improved at 7.9. Likely this is related to the acute trauma with multiple fractures etc. DVT Prophylaxis: Lovenox Resuscitation Status: Full Code - Course Hospital Course: Zbigniew Miller MD: 11/25/17 11:18 Rachel is settling into acute rehabilitation well. Has been seen by psychiatry. She is expressing some anxiety this morning. Iron studies consistent with acute blood loss rather than chronic iron deficiency. Blood pressures are controlled. - Interventions to Obtain Goals PT Treatment Plan: Balance/Proprioception, Functional Activities, Gait Training , Patient/Family Education, Therapeutic Exercise OT Treatment Plan: ADL (Basic Care), Balance Training, IADL, Pt./Family Education, Ther. Exercise for ADL Goals Progress/Modifications: Rachel is settling into the acute rehabilitation well. Her pain appears to be adequately controlled. She is eating and drinking adequately and is having bowel movements. She is expressing some increased anxiety at present. She has been seen by psychiatry. She is having some reflux and we will start some Maalox. Currently there is no evidence of wound infection. Her iron studies are consistent with acute blood loss rather than chronic iron deficiency. Please note that the patient's individual plan of care was developed and documented today, requiring review of therapy notes, medical conditions and anticipated functional recovery. This required additional medical decision making with regard to interaction of the patient's medical issues with the anticipated functional recovery. Please see separate document.
--- NOTE | 2017-11-25 11:22 | IRU Plan of Care ---
[facility] Overall Plan of Care - Date Date: 11/25/17 - Patient Impairments (1) Status post ORIF of fracture of ankle Code(s): Z96.7 - Presence of other bone and tendon implants; Z87.81 - Personal history of (healed) traumatic fracture Status: Acute Classification: Present on IRF Admission, IRF Tx That Should Address Diagnosis, Diagnosis Requiring Medical Follow Up (2) Hypertension Qualifiers: Hypertension type: essential hypertension Qualified Code(s): I10 - Essential (primary) hypertension Code(s): I10 - Essential (primary) hypertension Status: Chronic Classification: Present on IRF Admission, IRF Tx That Should Address Diagnosis, Diagnosis Requiring Medical Follow Up (3) Post traumatic stress disorder (PTSD) Code(s): F43.10 - Post-traumatic stress disorder, unspecified Status: Chronic Classification: Present on IRF Admission, IRF Tx That Should Address Diagnosis, Diagnosis Requiring Medical Follow Up (4) Laceration of thigh, left Qualifiers: Encounter type: subsequent encounter Qualified Code(s): S71.112D - Laceration without foreign body, left thigh, subsequent encounter Code(s): S71.112A - Laceration without foreign body, left thigh, initial encounter Status: Acute Classification: IRF Tx That Should Address Diagnosis, Diagnosis Requiring Medical Follow Up (5) Slow transit constipation Code(s): K59.01 - Slow transit constipation Status: Acute Classification: Present on IRF Admission, IRF Tx That Should Address Diagnosis, Diagnosis Requiring Medical Follow Up (6) Anemia due to acute blood loss Code(s): D62 - Acute posthemorrhagic anemia Status: Acute Classification: Present on IRF Admission, IRF Tx That Should Address Diagnosis, Diagnosis Requiring Medical Follow Up - Relevant Changes Relevant Changes: No Reviewed: I have reviewed the patient's information and concur with the finding and results of the pre-admission screen. Certification: I certify the patient for rehabilitation. - Medical Prognosis Medical Prognosis: Good Vital Signs: Last Vital Signs Temp 98.4 F 11/25/17 08:00 Pulse 99 11/25/17 08:00 Resp 20 11/25/17 08:00 BP 138/63 11/25/17 08:00 Pulse Ox 98 11/25/17 08:00 - Anticipated Interventions Anticipated Interventions: The patient requires inpatient IRF care for PT and OT for residuals remaining from right ankle fracture resulting in muscular weakness and strength deficits. An individualized overall plan of care has been developed after careful review of the patient's preadmission screening, post admission physician evaluation and assessments of all therapy disciplines and/or other pertinent clinicians involved in treating the patient. This indicates medical necessity and rehabilitation necessity have been established through a thorough review of all available medical information. - Current Functional Status Failed Alternative Therapy: Arrived from Acute Care Patient Requires: The patient requires oversight by rehabilitation physician to manage their rehabilitation treatment plan and multidisciplinary approach to care that can only be provided in an IRF and requires a multidisciplinary approach to care, provided by professional PTs, OTs, STs, rehabilitation nurses, and may require STs, dieticians, and RTS. This is not available in lesser levels of care. Physical Therapy Minutes: 90 Occupational Therapy Minutes: 90 Therapy: The patient is to receive therapy at least 5 days a week. - Anticipated LOS/Outcomes Anticipated Functional Outcome: It is anticipated the patient will be able to return to her home at modified independent level of functioning. She will remain with nonweightbearing on the right lower extremity. It is anticipated her anxiety/PTSD disorder will be under control with appropriate medications from psychiatry. It is anticipated that she will be able to perform her ADLs at independent to modified independent level of functioning with assistive devices and that her wounds will be healing adequately. Anticipated Length of Stay (days): 14 Anticipated DC Destination: Home, Self Care, Home Health Service Home Safety Plan: The patient will be provided with the development of a Home Safety Plan for return to a home or home-like environment and and to ensure safety post discharge. - Plan to Avoid Complications Barriers to Attaining Goals: Weakness, Endurance Plan to Avoid Complications: The patient cannot receive this care in a lesser intensive setting such as Intermediate or Outpatient Therapy due to the patient requiring the following : This patient requires a multidisciplinary approach with 24 hour rehabilitation nursing monitoring of pain and potential wound care, medical supervision in view of her severe anxiety/PTSD as well as physical therapy and occupational therapy in order to return her to her home at an adequate level of functioning. She will remain nonweightbearing on the right lower extremity and thus requires a coordinated multidisciplinary approach.
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
[2017-11-25] MEDS: TEMAZEPAM 15 MG CAPSULE PO SCH (21:13)
[2017-11-25] MEDS: PRAZOSIN 1 MG CAPSULE PO SCH (21:13)
[2017-11-25] MEDS: SENNOSIDES 8.6 MG TABLET PO SCH (21:15)
[2017-11-26] MEDS: MAG-AL + SIM ORAL LIQUID 30ml PO PRN ×2 (00:21→11:22)
[2017-11-26] MEDS: Oxycodone *IR* 5 MG TABLET PO PRN ×6 (00:27→21:12)
[2017-11-26] MEDS: LORazepam 2 MG TABLET PO PRN ×2 (00:27→08:50)
[2017-11-26] MEDS: TRAMADOL 50 MG TABLET PO PRN ×2 (04:01→18:31)
[2017-11-26] MEDS: PANTOPRAZOLE 20 MG TABLET PO SCH (06:35)
[2017-11-26] MEDS: VILAZODONE 40 MG TABLET PO SCH (08:49)
[2017-11-26] MEDS: ASCORBIC ACID 500 MG TABLET PO SCH (08:49)
[2017-11-26] MEDS: MULTI-VIT + MINERAL (Opti-gen) TABLET PO SCH (08:49)
[2017-11-26] MEDS: FERROUS SULFATE 324 MG TABLET PO SCH (08:49)
[2017-11-26] MEDS: MAGNESIUM OXIDE 400 MG TABLET PO SCH (08:50)
[2017-11-26] MEDS: LISINOPRIL 20 MG TABLET PO SCH (08:50)
[2017-11-26] MEDS: FLUoxetine 20 MG CAPSULE PO SCH (08:50)
[2017-11-26] MEDS: POLYETHYL GLYCOL 3350 17gm PACKET PO SCH (08:53)
[2017-11-26] MEDS: CYANOCOBALAMIN (B-12) 1,000mcg/ml INJECTION IM SCH (11:21)
[2017-11-26] MEDS: ENOXAPARIN 30 MG/0.3 ML INJECTION SQ SCH ×2 (11:21→21:05)
[2017-11-26] MEDS: LORazepam 1 MG TABLET PO PRN (15:25)
[2017-11-26] MEDS: PRAZOSIN 1 MG CAPSULE PO SCH (21:06)
[2017-11-26] MEDS: TEMAZEPAM 15 MG CAPSULE PO SCH (21:06)
[2017-11-26] MEDS: SENNOSIDES 8.6 MG TABLET PO SCH (21:06)
[2017-11-27] MEDS: MAG-AL + SIM ORAL LIQUID 30ml PO PRN ×2 (02:29→08:01)
[2017-11-27] MEDS: Oxycodone *IR* 5 MG TABLET PO PRN ×6 (02:50→22:25)
[2017-11-27] MEDS: LORazepam 1 MG TABLET PO PRN ×3 (02:50→18:26)
[2017-11-27] MEDS: PANTOPRAZOLE 20 MG TABLET PO SCH (06:10)
[2017-11-27] MEDS: ASCORBIC ACID 500 MG TABLET PO SCH (08:30)
[2017-11-27] MEDS: FERROUS SULFATE 324 MG TABLET PO SCH (08:31)
[2017-11-27] MEDS: ENOXAPARIN 30 MG/0.3 ML INJECTION SQ SCH ×2 (08:32→21:32)
[2017-11-27] MEDS: POLYETHYL GLYCOL 3350 17gm PACKET PO SCH (08:32)
[2017-11-27] MEDS: MAGNESIUM OXIDE 400 MG TABLET PO SCH (08:32)
[2017-11-27] MEDS: LISINOPRIL 20 MG TABLET PO SCH (08:33)
[2017-11-27] MEDS: MULTI-VIT + MINERAL (Opti-gen) TABLET PO SCH (08:33)
[2017-11-27] MEDS: FLUoxetine 20 MG CAPSULE PO SCH (08:33)
[2017-11-27] MEDS: VILAZODONE 40 MG TABLET PO SCH (08:33)
[2017-11-27] MEDS: TRAMADOL 50 MG TABLET PO PRN ×2 (09:54→18:26)
[2017-11-27] MEDS: CYANOCOBALAMIN (B-12) 1,000mcg/ml INJECTION IM SCH (11:25)
[2017-11-27] MEDS: TEMAZEPAM 15 MG CAPSULE PO SCH (21:32)
[2017-11-27] MEDS: PRAZOSIN 1 MG CAPSULE PO SCH (21:32)
[2017-11-27] MEDS: SENNOSIDES 8.6 MG TABLET PO SCH (21:32)
[2017-11-28] MEDS: Oxycodone *IR* 5 MG TABLET PO PRN ×5 (03:20→20:22)
[2017-11-28] MEDS: LORazepam 1 MG TABLET PO PRN ×3 (03:20→16:06)
[2017-11-28] MEDS: PANTOPRAZOLE 20 MG TABLET PO SCH ×2 (03:23→06:16)
[2017-11-28] MEDS: MAG-AL + SIM ORAL LIQUID 30ml PO PRN (03:27)
[2017-11-28] MEDS: VILAZODONE 40 MG TABLET PO SCH (08:34)
[2017-11-28] MEDS: MAGNESIUM OXIDE 400 MG TABLET PO SCH (08:34)
[2017-11-28] MEDS: ASCORBIC ACID 500 MG TABLET PO SCH (08:35)
[2017-11-28] MEDS: FERROUS SULFATE 324 MG TABLET PO SCH (08:38)
[2017-11-28] MEDS: CYANOCOBALAMIN (B-12) 1,000mcg/ml INJECTION IM SCH (08:38)
[2017-11-28] MEDS: FLUoxetine 20 MG CAPSULE PO SCH (08:39)
[2017-11-28] MEDS: LISINOPRIL 20 MG TABLET PO SCH (08:39)
[2017-11-28] MEDS: MULTI-VIT + MINERAL (Opti-gen) TABLET PO SCH (08:40)
[2017-11-28] MEDS: POLYETHYL GLYCOL 3350 17gm PACKET PO SCH (08:40)
[2017-11-28] MEDS: ENOXAPARIN 30 MG/0.3 ML INJECTION SQ SCH (08:41)
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
--- NOTE | 2017-11-28 13:54 | Ultrasound Report ---
Indication: suspect hematoma to L groin/lower abd. PROCEDURE: US soft tissue abd wall: Encounter: Initial Comparison: None. Findings: There is a moderately complex partially cystic collection in the left lower abdomen without definite vascularity suspicious for a liquefying hematoma or abscess. There is no definite well-defined wall to suggest abscess. The area is larger than the [id number] the catheter and probably measures at least 10 cm in transverse diameter and about 4 cm in maximal depth. Impression: Fairly large complex partially cystic collection suspicious for resolving hematoma. Superinfection cannot be excluded. .
--- NOTE | 2017-11-28 14:53 | Progress Note ---
Progress Note: I spoke with patient re: medication changes. She reports that her mood continues to be okay overall and she is not feeling more depressed or anxious. She again denies SI, HI, AVH. Patient has woken up in recent nights around 0300- 0330 and has been tearful. She has given some varying information to staff vs. me, but today she tells me that she feels like her nightmares have improved even with 1mg of prazosin at HS and that the sleep she is getting prior to her 0300 awakening is quality. She would like to continue to titrate prazosin upwards as tolerated prior to discharge from SNU. Will increase to 2mg PO q HS tonight as patient's HS BPs appear to be maintaining, and will discuss with patient further tomorrow.
[2017-11-28] MEDS: SENNOSIDES 8.6 MG TABLET PO SCH (20:23)
[2017-11-28] MEDS: TEMAZEPAM 15 MG CAPSULE PO SCH (20:24)
[2017-11-28] MEDS: PRAZOSIN 1 MG CAPSULE PO SCH (20:28)
[2017-11-29] MEDS: MAG-AL + SIM ORAL LIQUID 30ml PO PRN (03:11)
[2017-11-29] MEDS: TRAMADOL 50 MG TABLET PO PRN ×2 (03:12→10:33)
[2017-11-29] MEDS: Oxycodone *IR* 5 MG TABLET PO PRN ×5 (04:48→21:39)
[2017-11-29] MEDS: LORazepam 1 MG TABLET PO PRN ×3 (04:48→17:05)
[2017-11-29] MEDS: PANTOPRAZOLE 20 MG TABLET PO SCH ×2 (04:50→05:48)
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
[2017-11-29] MEDS: FERROUS SULFATE 324 MG TABLET PO SCH (08:36)
[2017-11-29] MEDS: LISINOPRIL 20 MG TABLET PO SCH (08:36)
[2017-11-29] MEDS: FLUoxetine 20 MG CAPSULE PO SCH (08:36)
[2017-11-29] MEDS: MULTI-VIT + MINERAL (Opti-gen) TABLET PO SCH (08:36)
[2017-11-29] MEDS: ASCORBIC ACID 500 MG TABLET PO SCH (08:36)
[2017-11-29] MEDS: VILAZODONE 40 MG TABLET PO SCH (08:36)
[2017-11-29] MEDS: MAGNESIUM OXIDE 400 MG TABLET PO SCH (08:36)
[2017-11-29] MEDS: POLYETHYL GLYCOL 3350 17gm PACKET PO SCH (08:37)
[2017-11-29] MEDS: CYANOCOBALAMIN (B-12) 1,000mcg/ml INJECTION IM SCH (10:17)
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
[2017-11-29] MEDS: PRAZOSIN 1 MG CAPSULE PO SCH (21:39)
[2017-11-29] MEDS: TEMAZEPAM 15 MG CAPSULE PO SCH (21:39)
[2017-11-29] MEDS: SENNOSIDES 8.6 MG TABLET PO SCH (21:39)
[2017-11-30] MEDS: LORazepam 1 MG TABLET PO PRN ×3 (00:08→13:34)
[2017-11-30] MEDS: TRAMADOL 50 MG TABLET PO PRN ×2 (00:09→17:53)
[2017-11-30] MEDS: PANTOPRAZOLE 20 MG TABLET PO SCH (06:24)
[2017-11-30] MEDS: Oxycodone *IR* 5 MG TABLET PO PRN ×4 (06:24→17:53)
[2017-11-30] MEDS: VILAZODONE 40 MG TABLET PO SCH (08:52)
[2017-11-30] MEDS: FLUoxetine 20 MG CAPSULE PO SCH (08:53)
[2017-11-30] MEDS: FERROUS SULFATE 324 MG TABLET PO SCH (08:53)
[2017-11-30] MEDS: POLYETHYL GLYCOL 3350 17gm PACKET PO SCH (08:53)
[2017-11-30] MEDS: ASCORBIC ACID 500 MG TABLET PO SCH (08:53)
[2017-11-30] MEDS: CYANOCOBALAMIN (B-12) 1,000mcg/ml INJECTION IM SCH (08:53)
[2017-11-30] MEDS: LISINOPRIL 20 MG TABLET PO SCH (08:53)
[2017-11-30] MEDS: MULTI-VIT + MINERAL (Opti-gen) TABLET PO SCH (08:53)
[2017-11-30] MEDS: MAGNESIUM OXIDE 400 MG TABLET PO SCH (08:53)
[2017-11-30 16:43] VITALS: BP 114/66; PULSE 67; RESP 16; TEMP 98.2; O2SAT 97
== END 2017-11-30 18:35 | disposition home health service (06) | DRG 560 ==
PROVIDERS: ADMIT Internal Medicine; ATTEND Internal Medicine